=== PATIENT | female | born 1975 | race Caucasian/White ===

== ENCOUNTER 2022-01-21 07:59 | Emergency (ER) | payer BC, SELFPAY ==
[2022-01-21 08:00] VITALS: BP 147/94; PULSE 73; RESP 16; TEMP 36.2; O2SAT 100; BMI 28.1
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
[2022-01-21 08:50] VITALS: O2SAT 100
== END 2022-01-21 09:32 | disposition home or self-care (01) ==
PROVIDERS: Emergency Provider Emergency Medicine; PCP Family Medicine; Visit Provider Emergency Medicine
DX: S06.0X0A Concussion without loss of consciousness, initial encounter (principal); H93.19 Tinnitus, unspecified ear; S16.1XXA Strain of muscle, fascia and tendon at neck level, initial encounter; R11.2 Nausea with vomiting, unspecified; Y92.410 Unspecified street and highway as the place of occurrence of the external cause; V43.52XA Car driver injured in collision with other type car in traffic accident, initial encounter
CPT/HCPCS: 70450; 72125; 99282

== ENCOUNTER 2022-12-16 11:35 | Emergency (ER) | payer BC, SELFPAY ==
[2022-12-16 11:36] VITALS: BP 145/94; PULSE 89; RESP 18; TEMP 35.9; O2SAT 98; BMI 29.0
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
[2022-12-16] MEDS: Ketorolac 30 MG/ML Syringe IM (11:51)
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
== END 2022-12-16 12:51 | disposition home or self-care (01) ==
PROVIDERS: Emergency Provider Emergency Medicine; PCP Family Medicine; Visit Provider Emergency Medicine
DX: S20.20XA Contusion of thorax, unspecified, initial encounter (principal); S39.012A Strain of muscle, fascia and tendon of lower back, initial encounter; F17.210 Nicotine dependence, cigarettes, uncomplicated; V50 Occupant of pick-up truck or van injured in collision with pedestrian or animal
CPT/HCPCS: 71101; 72100; 73030; 96372; 99282

== ENCOUNTER 2023-02-05 09:49 | Emergency (ER) | payer BC, SELFPAY ==
[2023-02-05 09:50] VITALS: BP 121/78; PULSE 73; RESP 14; TEMP 36.3; O2SAT 100; BMI 28.2
[2023-02-05] MEDS: 0.9% Normal Saline (1000mL) 500 ML 1000 ML IV (10:34)
[2023-02-05] MEDS: Aspirin 81 MG TAB.CHEW 324 MG PO (10:34)
--- NOTE | 2023-02-05 10:37 | ED.VIS.CHEST ---
HPI History of Present Illness Chief Complaint: Chest Pain Informant: patient Narrative Narrative: Patient presents with chest pain. Patient states that about 2 nights ago she woke up and she had some tingling and numbness in her left hand like it went to sleep. She has been having this off and on since. She is wondering if she has bad circulation. She does do a lot of physical activity. No injury. No weakness at any time. She is right-hand dominant. But she also states that when she woke up she also had soreness in her left upper chest. It hurts a little bit to take a deep breath but she is not actually short of breath. She is not nauseated. She has not been diaphoretic. She has no recent travel surgery immobilization personal or family history of DVT or PEs. It sounds like her sister is on blood thinners but that is for cardiac problem. Her mother is on blood thinners due to a clot in an aneurysm Patient is a smoker and was counseled to quit. She has Chantix on order already. She does not have a history of high blood pressure or diabetes or cholesterol. She does have a sister who sounds like she had bypass surgery at the age of 50. But this patient has never had any cardiac disease. Patient states that her chest symptoms with this soreness have been constant for 2 days. It has not gone away at any time. PFSH PFSH Home Medications amoxicillin 500 mg capsule mg 02/05/23 [History Last Taken 02/05/23] Allergy/AdvReac Type Severity Reaction Status Date / Time No Known Allergies Allergy Verified 02/05/23 09:50 Family History Other Cancer Diabetes Hypertension Kidney disease Surgical History H/O total hysterectomy Social History Smoking Status: Current every day smoker tobacco type: cigarettes alcohol intake: never ROS ROS ED ROS Narrative A complete review of systems was performed and is negative except as documented in the history of present illness. Some specific details below. Constitutional: No recent fevers or chills. No malaise or myalgias. EYE: No discharge, visual complaints, or pain. ENT: No difficulty swallowing. No swelling. No pain. No reflux symptoms. No history of GERD. CV: See history of present illness. Respiratory: No coughing. Not short of breath but she does have left-sided chest pain with a deep breath. GI: No abdominal pain. No nausea vomiting diarrhea. No blood in stool. : No frequency dysuria or hematuria. Musculoskeletal: No recent trauma. No pains. No swelling. Skin: No rash. Nondiaphoretic. Neuro: No weakness but she has had tingling in her left hand. Endocrine: No polyuria or polydipsia. EXAM Physical Exam Narrative Exam Narrative: CONSTITUTIONAL: Patient is nontoxic in appearance. The patient looks comfortable. Work of breathing looks normal. HEENT: No notable trauma. Mucous membranes moist. No sinus tenderness. No indication of pain with swallowing. EYES: No conjunctival injection. No proptosis. No pallor. NECK:No JVD. No stridor. CARDIOVASCULAR: Regular rate. Regular rhythm. No notable murmur. No JVD. Distal pulses are normal peripherally. RESPIRATORY: No respiratory distress. Breathing is unlabored. No wheezes. No rhonchi. No rales. She does have some pain in the left chest with a deep breath but it does not cause cessation of inspiration. There is no chest wall significant tenderness. She does not have notable chest pain with motion of her left arm. GASTROINTESTINAL: Not distended. Bowel sounds are normal. No tenderness. No guarding. No rebound. No palpable mass. No bruit is heard. GENITOURINARY: No tenderness over the bladder. No CVA tenderness. MUSCULOSKELETAL: Atraumatic. No peripheral edema. No cord. No tenderness along the deep venous system. No asymmetry. No distended veins. Patient has excellent distal pulses. She has normal Gopal test and reverse Gopal test in her left hand. But she does have a strongly positive Tinel's test at the wrist. Phalen's is equivocal. She definitely has a component consistent with carpal tunnel. NEUROLOGICAL: Patient is alert and appropriate. No focal deficit noted. See above. SKIN: No noted rashes. No diaphoresis. PSYCHIATRIC: Patient is calm. Mood is appropriate. Const Vital Signs: 02/05/23 09:50 02/05/23 11:45 Temperature 97.3 F L Temperature Source Temporal Pulse Rate 73 65 Respiratory Rate 14 16 Blood Pressure 121/78 H 138/94 H Blood Pressure Mean 92 108 Pulse Ox 100 99 Oxygen Delivery Method Room Air MDM MDM MDM Narrative Medical decision making narrative: My independent interpretation of the patient's single view chest x-ray shows no sign of acute assess and final reading is similar. Patient CBC is overall normal. Patient's electrolytes show no marked abnormalities. Glucose is also normal. Troponin level is 4 despite 2 days of symptoms. Patient's D-dimer is normal at 0.33. I checked with the patient. I do think she has carpal tunnel. This certainly explains some of her symptoms in the left hand and physical findings. We will get a wrist splint for this. I recommend she still follow-up with her physician. They still may do outpatient stress testing based on her family history. Lab Data Attestation: I reviewed the patient's lab results. Labs: Laboratory Results - last 24 hr 02/05/23 10:40 WBC 10.3 RBC 5.17 Hgb 15.5 H Hct 45.6 MCV 88.2 MCH 30.0 MCHC 34.0 RDW Std Deviation 42.0 RDW Coeff of Jerrell 13.0 Plt Count 326 MPV 8.8 Immature Gran % (Auto) 0.300 Neut % (Auto) 62.9 Lymph % (Auto) 28.4 [place] % (Auto) 6.2 Eos % (Auto) 1.7 Baso % (Auto) 0.5 Absolute Neuts (auto) 6.5 Absolute Lymphs (auto) 2.92 Nucleated RBC % 0 D-Dimer Quant (PE/DVT) 0.33 Sodium 140 Potassium 3.9 Chloride 109 H Carbon Dioxide 25.0 Anion Gap 6 BUN 13 Creatinine 0.74 Estim Creat Clear Calc 88.85 Est GFR (MDRD) Af Amer 107 Est GFR (MDRD) Non-Af 88 BUN/Creatinine Ratio 17.5 Glucose 99 Calcium 9.0 Troponin I High Sens 4 Radiography Diagnostic Testing: Clinical Impression(s) from Imaging Studies Chest X-Ray 02/05/23 10:44 IMPRESSION: No radiographic evidence of acute cardiopulmonary disease. Electronically Signed: Pan Lai MD at 11:59 EST , EKG Initial EKG: Comments: My independent interpretation of the patient's EKG shows a normal sinus rhythm with a rate of 70. No ectopy. No acute ST elevation or depression. No preexcitation. OK interval, QRS duration and QTc are normal. Patient does have symptoms during the EKG. Discharge Plan Triage Chief Complaint: Chest Pain ED Provider: Rashel Cowan Dx/Rx/DC Orders Clinical Impression: Acute carpal tunnel syndrome of left wrist, Chest pain Instructions: ED Chest Pain, Uncertain Cause, ED Carpal Tunnel Syndrome Prescriptions: No Action amoxicillin 500 mg capsule Primary Care Provider: Corby Davila Referrals: Corby Davila MD [Primary Care Provider] - 3-5 Days Disposition Disposition: Home, Self Care
--- NOTE | 2023-02-05 10:44 | RAD_ITS ---
INDICATION: chest pain EXAMINATION/TECHNIQUE: X-RAY - XR Chest 1 View COMPARISON: Prior study dated: 12/16/2022 FINDINGS: LINES/DEVICES: None. LUNGS: No consolidation, edema or effusion. No pneumothorax. MEDIASTINUM AND CARDIOVASCULAR STRUCTURES: Cardiac silhouette not enlarged. Central airways and mediastinal contour are unremarkable. BONES AND SOFT TISSUES: Unremarkable. RAD/Chest 1 View (Portable) IMPRESSION: No radiographic evidence of acute cardiopulmonary disease. Electronically Signed: Pan Lai MD at 11:59 EST ,
[2023-02-05 10:50] LABS: Absolute Lymphocyte Count 2.92 X10^3/uL (0.83-4.51); Absolute Neutrophil Count 6.5 X10^3/uL (2.0-7.7); Basophil# 0.05 X10^3/uL; Basophil% 0.5 % (0-1); Eosinophil# 0.17 X10^3/uL; Eosinophils% 1.7 % (0-5); Hematocrit 45.6 % (37-47); Hemoglobin 15.5 g/dL (12.0-15.0); Lymphocyte # 2.92 X10^3/ul (0.83-4.51); Lymphocyte % 28.4 % (19-41); Mean Corpuscular Volume 88.2 fL (81-99); Mean Platelet Vol. 8.8 fl (6.2-12.0); Monocyte# 0.64 X10^3/uL; Monocyte% 6.2 % (0-10); NRBC Flagged by Analyzer 0 % (0-5); Neutrophil # 6.47 X10^3/uL (2.7-7.7); Neutrophil % 62.9 % (47-70); Platelet Count 326 K/mm3 (150-450); Red Blood Count 5.17 M/mm3 (4.2-5.4); White Blood Count 10.3 K/mm3 (4.4-11.0)
[2023-02-05 11:02] LABS: D-Dimer Quantitative (DVT/PE) 0.33 FEU/ug/m (0.27-0.49)
[2023-02-05 11:06] LABS: Anion Gap 6 (5-15); BUN 13 mg/dL (7-18); BUN/Creat Ratio 17.5 RATIO (10-20); Chloride 109 mmol/L (98-107); Creatinine, Serum 0.74 mg/dL (0.55-1.02); EST Glomerular Filtration Rate 88 mL/min (>60); Est Glom Filt Rate - Afr Amer 107 mL/min (>60); Estimated Creatinine Clearance 88.85 ml/min; Glucose 99 mg/dL (74-106); Potassium 3.9 mmol/L (3.5-5.1); Sodium Level 140 mmol/L (136-145); Troponin-I HS 4 pg/mL (3.0-54.0)
--- OUTSIDE RECORDS SUMMARY | 2023-02-05 11:13 | XMS RPT_ITS | CCD ---
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 Procedures Referred By Contac t Referred To Contact [facility] Diagnoses Encounter for screening mammogram for breast cancer Procedures DO SCREENING SCREENING MAMMOGRAPHY BI 2-VIEW BREAST INC CAD Zafar Davila MD [address] [place] [address] [facility] [address] [place] [address] Referral ID Status Reason Start Date Expiration Date V isits Requested Visits Authorized [id number] Closed Auto-Generate d Referral 02/12/2022 03/14/2023 1 1 [facility] for visit Narrative* Diagnostic Procedure Only (Routine) - Closed Specialty Diagnoses / Procedures Referred By Contac t Referred To Contact [facility] Diagnoses Encounter for screening mammogram for breast cancer Procedures DO SCREENING SCREENING MAMMOGRAPHY BI 2-VIEW BREAST INC CAD Zafar Davila MD [address] [place] [address] [facility] [address] [place] [address] Referral ID Status Reason Start Date Expiration Date V isits Requested Visits Authorized [id number] Closed Auto-Generate d Referral 02/12/2022 03/14/2023 1 1 [facility] Summary Purpose Family History No Family History Records FoundNo Family History Records FoundNo Family History Records Found Advance Directives Documents on File Type Date Recorded Patient A R Collections Rep Expl anation Advance Directive(s) Additional Source Comments INFORMATION SOURCE (unrecogn ized section and content) DATE CREATED AUTHOR AUTHOR'S ORGANIZ ATION 01/10/2020 [facility] DATE CREATED AUTHOR AUTHOR'S ORGANIZ ATION 10/11/2022 [place] Source Comments (unrecognize d section and content) In the event this informatio n is protected by the Federal Confidentiality of Alcohol and Drug Abuse Patient Records regulations: The Federal rules restrict any use of the information to criminally investigate or prosecute any alcohol or drug abuse patient.[facility] the event this information is protected by the Federal Confidentiality of Alcohol and Drug Abuse Patient Records regulations: The Federal rules restrict any use of the information to criminally investigate or prosecute any alcohol or drug abuse patient.[facility] the event this information is protected by the Federal Confidentiality of Alcohol and Drug Abuse Patient Records regulations: The Federal rules restrict any use of the information to criminally investigate or prosecute any alcohol or drug abuse patient.[facility] the event this information is protected by the Federal Confidentiality of Alcohol and Drug Abuse Patient Records regulations: The Federal rules restrict any use of the information to criminally investigate or prosecute any alcohol or drug abuse patient.[facility] Reason for Visit (unrecogniz ed section and content) Care Teams (unrecognized sec tion and content) Breastfeeding Educator Relationship Specialty Start Date End Date Zafar Davila MD [address] [place] [address] PCP - General Family Medicine 06/25/15 Breastfeeding Educator Relationship Specialty Start Date End Date Zafar Davila MD [address] [place] [address], [place] [address] PCP - General Family Medicine 06/25/15 Breastfeeding Educator Relationship Specialty Start Date End Date Zafar Davila MD [address] [place] [address] PCP - General Family Medicine 06/25/15 FOR RECORDS PERTAINING TO PATIENTS WHO ARE OR HAVE BEEN ENROLLED IN A CHEMICAL DEPENDENCY/SUBSTANCEABUSE PROGRAM, SOME INFORMATION MAY BE OMITTED. This clinical summary was aggregated from multiple sources. Caution should be exercised in using it in the provision of clinical care. This summary normalizes information from multiple sources, and as a consequence, information in this document may materially change the coding, format and clinical context of patient data. In addition, data may be omitted in some cases. CLINICAL DECISIONS SHOULD BE BASED ON THE PRIMARY CLINICAL RECORDS. [facility]. provides no warranty or guarantee of the accuracy or completeness of information in this document.
[2023-02-05 11:45] VITALS: BP 138/94; PULSE 65; RESP 16; O2SAT 99
== END 2023-02-05 13:36 | disposition home or self-care (01) ==
PROVIDERS: Emergency Provider Emergency Medicine; PCP Family Medicine; Visit Provider Emergency Medicine
DX: G56.02 Carpal tunnel syndrome, left upper limb (principal); F17.210 Nicotine dependence, cigarettes, uncomplicated; R07.9 Chest pain, unspecified
CPT/HCPCS: 71045; 80048; 84484; 85025; 85379; 93005; 99284; J7030

== ENCOUNTER 2024-10-17 23:00 | Emergency (ER) | payer BC, SELFPAY ==
[2024-10-17 23:02] VITALS: BP 167/99; PULSE 90; RESP 19; TEMP 36.8; O2SAT 100; BMI 25.2
--- NOTE | 2024-10-17 23:22 | EDS_ITS ---
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 She states she was helping to clean the basement floor, she was using Borax and vinegar and accidentally kicked over a container of bleach that mixed with it, and then she was trying to clean that up while she was exposed to fumes she ended up smelling. She states this could have been occurring between the hours of 4-6 p.m., she presents here around 11 PM having had chest burning, some shortness of breath mostly due to coughing, and soreness in her throat as well as some itching there. She states she has emphysema, she is not on home oxygen, she used her albuterol couple times it helped very transiently and partially. [facility] Medical History Low back pain Autoimmune disease Home Medications ?Medication ?Instructions ?Recorded ?Last Taken ?Type citalopram 10 mg tablet (Celexa) 10 mg PO QDAY #30 tab s 09/12/24 Unknown Rx varenicline tartrate 1 mg tablet 1 mg PO BID #56 tabs 09/12/24 Unknown Rx (Chantix Continuing Month Box) prednisone 20 mg tablet 40 mg (2 x 20 mg) PO DAILY 3 days 10/18/24 Unknown Rx #6 tabs Allergy/AdvReac Type Severity Reaction Status Date / Time No Known Allergies Allergy Verified 10/17/24 23:04 Family History (Updated 09/12/24 @ 09:[address] 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 do you feel safe at home: Yes ROS ROS ED Constitutional Constitutional ED: Denies chills or fever(s) Eyes Eyes: Denies change in vision or diplopia ENT ENT ED: Reports sore throat; Denies ear pain Cardiovascular Cardiovascular: Reports chest pain; Denies palpitations Respiratory/Chest Respiratory/Chest: Reports cough and dyspnea Gastrointestinal Gastrointestinal: Denies abdominal pain, diarrhea, nausea or vomiting Genitourinary Genitourinary ED: Denies dysuria or hematuria Musculoskeletal Musculoskeletal: Denies back pain or neck pain Integumentary Denies abscess or rash Neurologic Neurologic: Denies headache(s), paresthesias or weakness Psychiatric Psychiatric: Denies suicidal thoughts EXAM Physical Exam Const Vital Signs: 10/17/24 23:02 10/17/24 23:40 10/17/24 23:45 Temperature 98.3 F Temperature Source Oral Pulse Rate 90 80 Respiratory Rate 19 H 14 Respiratory Effort Short of Breath Respiratory Depth Normal Respiratory Pattern Tachypnea Blood Pressure 167/99 H Blood Pressure Mean 121 Pulse Ox 100 Oxygen Delivery Method Room Air Room Air Oxygen Flow Rate (L/min) Fraction of Inspired Oxygen (FIO2) 10/17/24 23:53 10/18/24 00:00 10/18/24 00:08 Temperature Temperature Source Pulse Rate 71 Respiratory Rate 16 Respiratory Effort Respiratory Depth Respiratory Pattern Blood Pressure 144/79 H Blood Pressure Mean 97 Pulse Ox 96 97 Oxygen Delivery Method Venturi Mask Oxygen Flow Rate (L/min) 8 Fraction of Inspired Oxygen (FIO2) 35 10/18/24 00:16 Temperature Temperature Source Pulse Rate Respiratory Rate Respiratory Effort Respiratory Depth Respiratory Pattern Blood Pressure Blood Pressure Mean Pulse Ox Oxygen Delivery Method Room Air Oxygen Flow Rate (L/min) Fraction of Inspired Oxygen (FIO2) Positive well nourished and well developed Constitutional Narrative: Well-appearing, no excessive secretions, conversive in full sentences. Occasional cough and bronchospasm when try to take deep breaths. General Appearance ED: well developed and NAD HEENT Reports moist mucous membranes HEENT Narrative: POP w/ mild erythema normocephalic and atraumatic Eyes PERRL and EOMs intact bilaterally Neck full ROM, no lymphadenopathy, supple and no meningeal signs Resp normal respiratory effort and clear to auscultation bilaterally Cardio regular rate, regular rhythm and no murmurs GI non-tender and non-distended Auscultation: normoactive bowel sounds Palpation: soft Back/Spine no CVA tenderness General Back: other FROM Extremity normal to inspection General Extremety ED: Negative for edema, pulses abnormal or tenderness General Extremity: Negative for edema or pulses abnormal Neuro oriented x3, CN's II-XII intact bilaterally and no sensory deficits noted Sensorium / Orientation: awake and alert Motor Exam: strength 5/5 throughout Skin no rashes or lesions noted and no wounds MDM MDM MDM Narrative Medical decision making narrative: Patient appears well and nontoxic with normal vital signs. We gave her some fluids to drink, albuterol nebulizer, and a nebulized lidocaine treatment to see if would help with the burning. She states these did help for 5 or 10 minutes but then she started having discomfort again, we let her sit with a 35% Ventimask for a while to try to help flood the inhaled chlorine gas out, and eventually did a 1 view chest x-ray which my interpretation is unremarkable. She is feeling better and ambulatory and conversive in full sentences, and feels well enough to go home. I did discuss with poison control, they agreed with my management and did not have any other recommendations. And given the patient a [id number] prescription for a 3-day course of prednisone just in case she ends up having more of a COPD exacerbation from this which at this point I do not think she is necessarily having. Management Discussion w/another healthcare provider: Police Commanding Officer ( Poison control/toxicology) Discharge Plan Triage Chief Complaint: Cough ED Provider: Suman Aguilar Dx/Rx/DC Orders Clinical Impression: Acute pneumonitis due to chemical fumes Instructions: ED Chemical Inhalation Prescriptions: New prednisone 20 mg tablet 40 mg PO DAILY 3 Days Qty: 6 0RF No Action citalopram [Celexa] 10 mg tablet 10 mg PO QDAY Qty: 30 1RF varenicline tartrate [Chantix Continuing Month Box] 1 mg tablet 1 mg PO BID Qty: 56 2RF Primary Care Provider: Nichelle Hogan Referrals: Nichelle Hogan MD [Primary Care Provider] - 3-5 Days if not improving Print Language: Kiswahili Disposition Disposition: Home, Self Care
--- OUTSIDE RECORDS SUMMARY | 2024-10-17 23:25 | XMS RPT_ITS | CCD ---
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 0.9841 * Slice Thickness (mm): 1.25 * CT Dose-Length Product: 100 mGy*cm * CT Dose Index: 2.88mGy * CT Dose Reduction Method: Automated exposure control(AEC) and iterative recon COMPARISON: CT chest dated 09/23/2023 RESULT: Are nodules present? Yes, 1-5 nodules If No, go to IMPRESSION. If yes, proceed with characterization of the FIVE largest nodules. Nodule 1: This Solid nodule is located in the Left Upper Lobe on slice number 116 with an average diameter of 2.8 mm (3.2 mm x 2.3 mm). Nodule 2: This Solid nodule is located in the Left Lower Lobe on slice number 159 with an average diameter of 2.2 mm (2.7 mm x 1.7 mm). Nodule 3: This Solid nodule is located in the Left Upper Lobe on slice number 64 with an average diameter of 2.2 mm (2.7 mm x 1.7 mm). Other lung nodule comments: None Other findings: The central airways are patent without evidence of endobronchial lesion. Upper lobe predominant paraseptal and centrilobular emphysema with diffuse bronchial wall thickening is seen. There is no acute focal lung consolidation. There is no pleural effusion or pneumothorax. Borderline enlarged mediastinal lymph nodes are likely reactive. For reference, a subcarinal lymph node (image 126, series 2) measures 10 mm in short axis, a left para-aortic lymph node (image 101, series 2) measures 10 mm in short axis and a right paratracheal lymph node (image 106, series 2) measures 10 mm in short axis. No enlarged supraclavicular, axillary or hilar lymph nodes are seen. The aorta and main pulmonary artery are normal in course and caliber. The heart size is normal. There is no pericardial effusion. Calcified nodule is seen in the right thyroid lobe. The esophagus is nondilated. The soft tissues of the chest wall are unremarkable. The visible portion of the upper abdomen is unremarkable. A sclerotic focus in the T8 vertebral body is stable since 03/22/2010 and likely represents a bone island. No destructive bone lesion is seen. Emphysema: Mild (5-25%), Centrilobular and paraseptal, Upper lobe Coronary Artery Calcifications: Circumflex None; Left Anterior Descending None; Right Coronary None Localizer images: No additional findings. IMPRESSION: LungRADS category: 2 LungRADS modifier: None LungRADS 0 reason: n/a Recommendations: Continue annual screening with LDCT in 12 months. Other actionable findings: ========= Reference: [employer]. Lung CT Screening Reporting and Data System (Lung-RADS). Available at: http://www.acr.org/Angus lity-Safety/Resources/ LungRADS Transcribed Using Voice Recognition Transcribe Date/Time: Oct 03 2024 4:15P Dictated by: MARIJA DENTON MD This examination was interpreted and the report reviewed and electronically signed by: MARIJA DENTON MD on Oct 03 2024 4:36PM EST [id number] Normal [facility] Internal Medicine Office Vis iton 09-06-2024 Internal Medicine Office Visit [facility] [address] [place] [address] OFFICE VISIT Date of Service: 09/12/24 MR#: [id number] Acct: [id number] Name: KIZZY UREÑA Rep #: [id number] : 1975 Provider: Dr. Nichelle santos MD Age/Sex: 48/F Location: [facility] Status: Signed Intake Vital Signs 02/05/23 09:50 07/24/24 10:31 09/12/24 09:05 Height 4 ft 10 in 4 ft 10 in 4 ft 10 in Weight: 124 lb BMI 25.9 BP 140/80 H Blood Pressure Location Lt brachial Position Sitting Respiration 16 Pulse 66 Pulse Source Monitor Temp 97.7 F L Temp Source Temporal Pulse Oximetry (%) 97 Oxygen Delivery Method room air Intake Visit Reasons: STORE HAND. EST CARE - PPW SENT Chief Complaint: STORE HAND ESTABLISH CARE Is patient in pain?: Yes (LEFT HIP >1 YEAR) Pain scale (1-10): 7 Allergies No Known Allergies Allergy (Verified 09/12/24 09:02) Medications ???Medication ???Instructions ???Recorded ???Confirmed ???Type citalopram 10 mg tablet (Celexa) 10 mg PO QDAY #30 tabs 09/12/24 Rx varenicline tartrate 1 mg tablet 1 mg PO BID #56 tabs 09/12/2406/03 Rx (Chantix Continuing Month Box) Have you fallen in the past year?: No FOR[facility]LY [facility], [facility] Medical History (Updated 09/12/24 @ 09:[address] Nichelle Hogan MD) Low back pain Autoimmune disease Surgical History (Updated 09/12/24 @ 09:[address] Nichelle Hogan MD) Previous section H/O total hysterectomy Family History (Updated 09/12/24 @ 09:[address] Nichelle Hogan MD) Grandmother Cancer lung Lupus Mother Cancer lung Lupus Sister Lupus Aunt Lupus Other Diabetes Heart disease Hypertension Kidney disease Thyroid disorder Social History (Updated 09/12/24 @ 09:[address] 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 1. Little interest or pleasure in doing things: not at all 2. Feeling down, depressed, or hopeless: not at all 3. Trouble falling or staying asleep, or sleeping too much: not at all 4. Feeling tired or having little energy: not at all 5. Poor appetite or overeating: not at all 6. Feeling bad about yourself - or that you are a failure or have let yourself and your family down: not at all 7. Trouble concentrating on things, such as reading the newspaper or watching television: nearly every day 8. Moving or speaking so slowly that other people could have noticed? - Or the opposite - being so fidgety or restless that you have been moving around a lot more than usual: nearly every day 9. Thoughts that you would be better off or of hurting yourself in some way: not at all Total score: 6 If you checked off any problems, how difficult have these problems made it for you to do your work, take care of things at home, or get along with other people?: not difficult at all Source: Developed by Drs. Jim Whitfield, Katty Lopez, Dre Mercer and colleagues, with an educational emery from [employer]. ALBERTO-7 BMS ALBERTO-7 Feeling nervous, anxious, or on edge: 0 = Not at all Not being able to stop or control worryin = Not at all Worrying too much about different things: 0 = Not at all Trouble relaxin = Not at all Being so restless that it is hard to sit still: 0 = Not at all Becoming easily annoyed or irritable: 3 = Nearly every day Feeling afraid as if something awful might happen: 0 = Not at all Total ALBERTO-7 score (0-4 normal; 5-9 mild; 10-14 moderate; 15-21 severe): 3 Source: Developed by Drs. Jim Whitfield, Katty Lopez, Dre Mercer and colleagues, with an educational emery from [employer]. HPI HPI Chief Complaint: STORE HAND ESTABLISH CARE Details: KIZZY UREÑA, is a 48 F who presents to the office today to establish care. She was seeing Dr. Felder and last saw their office a few months ago. She is due for some routine blood work and screening. She does want her second shingles vaccine. She does smoke. She is currently using chantix and would like a refill for it. She reports with it, she has cut back from 1ppd to 1pack per week. She does need refills. She reports she is eating healthy and staying active. She enjoys bike riding. The patient reports she has a strong family history of autoimmune disorders in the family. She reports she was told she also had an autoimmune disease, but has tried and failed multiple medications. She reports she does get symptoms of raynaud's stating her fingers will turn white w (more content not included)... Normal [facility] Urgent Care Visit Reporton 0 07-24-2024 Urgent Care Visit Report [facility] [address], [address] [place] [address] OFFICE VISIT Date of Service: 07/24/24 MR#: [id number] Acct: [id number] Name: KIZZY UREÑA Rep #: [id number] : 1975 Provider: COURTNEY terry Age/Sex: 48/F Location: [facility] Status: Signed Intake Vital Signs 02/05/23 09:50 07/24/24 10:31 Height 4 ft 10 in 4 ft 10 in BP 118/76 Blood Pressure Location Lt brachial Position Sitting Respiration 17 Pulse 70 Pulse Source NIBP Temp 98.1 F Temp Source Oral Pulse Oximetry (%) 96 Oxygen Delivery Method room air Intake Visit Reasons: INGROWN TOE NAIL R BIG TOE/ MOLE ON BACK Chief Complaint: right great toe infection Platform Man Required: No Is patient in pain?: Yes Allergies No Known Allergies Allergy (Verified 07/24/24 10:43) Medications ???Medication ???Instructions ???Recorded ???Confirmed ???Type amoxicillin 875 mg-potassium 1 tab PO BID 7 days #14 tabs 07/2407/24/24 Rx clavulanate 125 mg tablet lidocaine 5 % topical ointment 1 applic topical QDAY PRN pain #30 07/24/24 07/24/24 Rx grams Is last menstrual period known: No Post menopausal: Yes Patient : No Have you fallen in the past year?: No Nurse's Note: right great toe infection x 1 week, much worse last night after pt dug at it. hx of same. also c/o right upper back skin tag PFSH Surgical History H/O total hysterectomy Family History Other Cancer Diabetes Hypertension Kidney disease Social History Smoking Status: Current every day smoker tobacco type: cigarettes alcohol intake: never HPI HPI Chief Complaint: right great toe infection Details: KIZZY UREÑA is a 48 F who presents to the office today for concerns regarding right great toe infection for this and ongoing for 1 week. She feels this to have worsened after she dug at it. She also stressed concerns regarding a right upper back skin tag. ROS Const Constitutional: No body ache, chills, fatigue, fever(s) or headache(s) ENT ENT: No headache(s) Skin Skin: Positive for redness Neuro Neurology: No headache(s) Endo Endocrine: No fatigue Exam Const General: cooperative, healthy appearing, comfortable and no acute distress Orientation: alert and awake Skin General: other Other: right great toe redness, clear drainage, and tender to touch. Pulses 2+. Warm extremity to touch. Coding Level of Care Code Off vis,est,level 3 Diagnoses Toe pain, right M79.674 Assessment and Plan Assessment and Plan (1) Toe pain, right: Status: Acute Plan: Will add oral antibiotic along with topical antibiotic. She expresses concerns regarding pain control. Will send prescription for lidocaine to help. She was encouraged to utilize hydrocortisone cream along with Tylenol and ibuprofren. She was encouraged to follow with mineral economist for toe related issues along with potential flat foot or overpronation related issues that may affect her knee or hip. Encouraged to get plenty of rest, drink lots of clear liquids, and use Tylenol or Ibuprofen (unless contraindicated) for fever and comfort. Patient also educated on other symptomatic management techniques. To be seen in 7-10 days if no improvement; sooner if worsening of symptoms.??? Patient advised of potential red flags and when appropriate to report to the ED.??? Patient verbalized understanding and agreement with all the above. Medications: New amoxicillin-pot clavulanate 875-125 mg 1 TAB PO BID 7 days 14 tabs 0RF lidocaine 5% 1 applic topical QDAY PRN 30 grams 0RF pain Clinical Quality Measures Falls Risk Screening/Assistive Devices Have you fallen in the past year?: No 07/24/24 4329 Date [facility] STORE HAND STORE HAND-C Cosigner Signature: Date (if applicable) CC: Dr. Nichelle Hogan MD; Dr. Abel Hill DO Normal [facility] UA DIP, URINE (POC)on 2023 BILIRUBIN UA (POCT) Negative Negative [facility] CLARITY UA (POCT) Clear [facility] COLOR UA (POCT) Yellow [facility] GLUCOSE UA (POCT) Negative Negative mg/dL [facility] Hemoglobin Ql (U) Moderate Abnormal Negative [facility] Interpretation and review of laboratory results Abnormal [facility] KETONE UA (POCT) Negative Negative mg/dL [facility] LEUKOCYTES UA (POCT) Negative Negative [facility] NITRITE UA (POCT) Negative Negative [facility] PH UA (POCT) 6.0 4.5 - 8.0 [facility] Protein Ql (U) Negative Negative mg/dL [facility] SPECIFIC GRAVITY UA (POCT) >=1.030 1.005 - 1.030 [facility] UROBILINOGEN UA (POCT) 0.2 Normal E.U./dL [facility] Location:[facility], [address] [place] [address], [place], [place], [id number] [place] [address] POINT OF CARE [facility] DO SCREENINGon 09-29-2022 [facility] No Panel Informationon 09-27 POC SARS CoV-2 Antigen Negative [facility] Work Phone: CORONAVIRUS PCR [CCL]on 12-11 REF LAB REPORT Negative Normal [facility] Comment on above: Performed By: #### [id number] #### [facility],[address] [place] [address] SEND TO IC? NO Normal [facility] Comment on above: Performed By: #### 2 [id number] #### [facility],[address] [place] [address] COVID 19 Result STORE HAND Negative Normal [facility] Comment on above: Result Comment: Nega tive for COVID19 (SARS CoV2) by PCR. This test was developed and its performance characteristics determined by [facility]'s [facility]. This test has been authorized by FDA under an Emergency Use Authorization (EUA). This test has been validated in accordance with the FDA's Guidance Document Policy for Diagnostics Testing in Laboratories Certified to Perform High Complexity Testing under CLIA prior to Emergency use Authorization for Coronavirus Disease 2019 during the Public Health Emergency issued on April 09, 2019. [id number] [place] [address] Valdez Renae III, M.D. [id number] Performed By: #### 2 [id number] #### [facility],[address] [place] [id number] COVID 19 Source STORE HAND STORE HAND Normal [facility] Comment on above: Performed By: #### 2 [id number] #### [facility],[address] [place] [address] EMERGENCY REPORTon 0 EMERGENCY REPORT [facility] EMERGENCY ROOM REPORT NAME ACCOUNT SEX AGE ADMIT DISCHARGE PT MED. RECORD# NUMBER DATE DATE TYPE KIZZY UREÑA [id number] F 44 10/18/19 10/18/19 3 M [id number] ROOM: ER DATE OF : 1975 DICTATING PHYSICIAN: Donta Lawrence CHIEF COMPLAINT: Eye pain. HISTORY OF PRESENT ILLNESS: The patient stats that she leaned over and the sharp point of a yucca plant leaf struck her eye. This happened within the last hour. She is complaining of marked discomfort, irritation and pain to the right eye. She states that it is very light sensitive. Additionally, she states that her nose just will not stop running. No other injuries or complaints. PAST MEDICAL HISTORY: Negative for significant medical problems. PHYSICAL EXAMINATION: GENERAL: This is a 44-year-old female who is very pleasant, but she is markedly uncomfortable. She is holding her right eye. SKIN: [place], warm and dry. VITAL SIGNS: As noted. HEENT: Nose mouth and throat are generally unremarkable. Left eye appears normal with reactive pupil. It is difficult to examine the right eye initially because she states that it is so hard to keep it open and it is difficult to open because of pain. EMERGENCY DEPARTMENT COURSE AND TREATMENT: I instilled a couple of drops of tetracaine and repeated this 30-60 seconds later and she had nearly complete relief of her pain. Gross visualization of that eye revealed diffusely reddened conjunctiva and what appeared to be a corneal disruption somewhat laterally. No evidence of foreign body. Upper and lower lids were everted, and no foreign body was seen. The funduscopic exam was unremarkable. The eye anterior chamber appeared normal. Fluorescein drops were instilled and this revealed a moderate corneal abrasion/laceration vertically oriented across the cornea, lateral to the pupil. No other evidence of abnormality. It was irrigated and explored again. No other abnormalities seen. DIAGNOSIS: Corneal abrasion. I did place a cyclopentolate drop and erythromycin ointment. PLAN/DISPOSITION: She was dispensed Cyclogyl drops to use one drop b.i.d. for the next 2 days, erythromycin ointment t.i.d., tetracaine drops to use one drop q2-4h up to 24 hours. She is to follow up with [facility] in 24-48 hours if symptoms persist. Return if symptoms worsen. Page 1 of 2 KIZZY UREÑA Emergency Room Report KIZZY UREÑA : 1975 Dictated By: Donta Lawrence MD 10/21/19 07:28 JOB #: [id number] Transcribed By: renee 10/22/19 10:47 Electronically signed by: TALIB Lawrence M.D. 10/28/19 17:30 Page 2 of 2 KIZZY UREÑA Emergency Room Report Normal [facility] Vital Signs Date Time Vital Sign Value Performing Clinician Facility 09-30-2024 09:06-0400 Body height 144.8 cm Chastity Maya PA-C Work Phone: [facility] 09-30-2024 09:06-0400 Body mass index (BMI) [Ratio] 25.53 kg/m2 Chastity Maya PA-C Work Phone: [facility] 09-30-2024 09:06-0400 Body temperature 97.2 [degF] Chastity Maya PA-C Work Phone: [facility] 09-30-2024 09:06-0400 Body weight 53.52 kg Chastity Maya PA-C Work Phone: [facility] 09-30-2024 09:06-0400 Diastolic blood pressure 70 mm[Hg] Chastity Shahi PA-C Work Phone: [facility] 09-30-2024 09:06-0400 Heart rate 71 /min Chastity Shahi PA-C Work Phone: [facility] 09-30-2024 09:06-0400 Respiratory rate 10 /min Chastity Shahi PA-C Work Phone: [facility] 09-30-2024 09:06-0400 SaO2% (BldA) [Mass fraction] 97 % Chastity Shahi PA-C Work Phone: [facility] 09-30-2024 09:06-0400 Systolic blood pressure 126 mm[Hg] Chastity Shahi PA-C Work Phone: [facility] 09-12-2024 09:05-0400 Body height 147.[address] Corby Felder MD Work Phone: [facility] 09-12-2024 09:05-0400 Body mass index (BMI) [Ratio] 25.9 kg/m2 Dr. Corby Felder MD Work Phone: [facility] 09-12-2024 09:05-0400 Body temperature 97.7 [degF] Dr. Corby Felder MD Work Phone: [facility] 09-12-2024 09:05-0400 Body weight 56.[address] Corby Felder MD Work Phone: [facility] 09-12-2024 09:05-0400 Diastolic blood pressure 80 mm[Hg] Dr. Corby Felder MD Work Phone: [facility] 09-12-2024 09:05-0400 Heart rate 66 /min Dr. Corby Felder MD Work Phone: [facility] 09-12-2024 09:05-0400 Respiratory rate 16 /min Dr. Corby Felder MD Work Phone: [facility] 09-12-2024 09:05-0400 SaO2% (BldA) [Mass fraction] 97 % Dr. Corby Felder MD Work Phone: 3(134)757-590843 [place] [address] 09-12-2024 09:05-0400 Systolic blood pressure 140 mm[Hg] Dr. Corby Felder MD Work Phone: 8(062)570-820171 [place] [address] 07-24-2024 10:31-0400 Body height 147.[address] Corby Felder MD Work Phone: 5(902)890-018071 [place] [address] 07-24-2024 10:31-0400 Body temperature 98.1 [degF] Dr. Corby Fleder MD Work Phone: 7(391)750-815271 [place] [address] 07-24-2024 10:31-0400 Diastolic blood pressure 76 mm[Hg] Dr. Corby Felder MD Work Phone: 4(162)846-070571 [place] [address] 07-24-2024 10:31-0400 Heart rate 70 /min Dr. Corby Felder MD Work Phone: 8(954)720-974671 [place] [address] 07-24-2024 10:31-0400 Respiratory rate 17 /min Dr. Corby Felder MD Work Phone: 1(568)896-210271 [place] [address] 07-24-2024 10:31-0400 SaO2% (BldA) [Mass fraction] 96 % Dr. Corby Felder MD Work Phone: [facility] 07-24-2024 10:31-0400 Systolic blood pressure 118 mm[Hg] Dr. Corby Felder MD Work Phone: [facility] 09-25-2023 08:32-0400 Body height 144.8 cm Chastity Maya PA-C Work Phone: [facility] 09-25-2023 08:32-0400 Body mass index (BMI) [Ratio] 27.27 kg/m2 Chastity Maya PA-C Work Phone: [facility] 09-25-2023 08:32-0400 Body temperature 97.3 [degF] Chastity Shahi PA-C Work Phone: [facility] 09-25-2023 08:32-0400 Body weight 57.15 kg Chastity Shahi PA-C Work Phone: [facility] 09-25-2023 08:32-0400 Diastolic blood pressure 83 mm[Hg] Chastity Cruzlli PA-C Work Phone: [facility] 09-25-2023 08:32-0400 Heart rate 70 /min Chastity Shahi PA-C Work Phone: [facility] 09-25-2023 08:32-0400 Respiratory rate 12 /min Chastity Cruzlli PA-C Work Phone: [facility] 09-25-2023 08:32-0400 SaO2% (BldA) [Mass fraction] 100 % Chastity Shahi PA-C Work Phone: [facility] 09-25-2023 08:32-0400 Systolic blood pressure 139 mm[Hg] Chastity Shahi PA-C Work Phone: [facility] 09-10-2023 08:31-0400 Body mass index (BMI) [Ratio] 27.7 kg/m2 Kimmy Suppan METHODS AND PROCEDURES ANALYST.NET FRONT END DEVELOPER Work Phone: [facility] 09-10-2023 08:31-0400 Body weight 58.06 kg Kimmy Suppan METHODS AND PROCEDURES ANALYST.NET FRONT END DEVELOPER Work Phone: [facility] 09-10-2023 08:31-0400 Diastolic blood pressure 80 mm[Hg] Kimmy Suppan METHODS AND PROCEDURES ANALYST.NET FRONT END DEVELOPER Work Phone: [facility] 09-10-2023 08:31-0400 Heart rate 77 /min Kimmy Suppan METHODS AND PROCEDURES ANALYST.NET FRONT END DEVELOPER Work Phone: [facility] 09-10-2023 08:31-0400 Respiratory rate 16 /min Kimmy Suppan METHODS AND PROCEDURES ANALYST.NET FRONT END DEVELOPER Work Phone: [facility] 09-10-2023 08:31-0400 SaO2% (BldA) [Mass fraction] 99 % Kimmy Suppan METHODS AND PROCEDURES ANALYST.NET FRONT END DEVELOPER Work Phone: [facility] 09-10-2023 08:31-0400 Systolic blood pressure 132 mm[Hg] Kimmy Suppan METHODS AND PROCEDURES ANALYST.NET FRONT END DEVELOPER Work Phone: [facility] 09-09-2023 17:13-0400 Body mass index (BMI) [Ratio] 28.19 kg/m2 Tony Moomaw METHODS AND PROCEDURES ANALYST.NET FRONT END DEVELOPER Work Phone: [facility] 09-09-2023 17:13-0400 Body temperature 98.29 [degF] Tony Moomaw METHODS AND PROCEDURES ANALYST.NET FRONT END DEVELOPER Work Phone: [facility] 09-09-2023 17:13-0400 Body weight 59.1 kg Tony Moomaw METHODS AND PROCEDURES ANALYST.NET FRONT END DEVELOPER Work Phone: [facility] 09-09-2023 17:13-0400 Diastolic blood pressure 84 mm[Hg] Tony Moomaw METHODS AND PROCEDURES ANALYST.NET FRONT END DEVELOPER Work Phone: [facility] 09-09-2023 17:13-0400 Heart rate 80 /min Tony Moomaw METHODS AND PROCEDURES ANALYST.NET FRONT END DEVELOPER Work Phone: [facility] 09-09-2023 17:13-0400 Respiratory rate 16 /min Tony Moomaw METHODS AND PROCEDURES ANALYST.NET FRONT END DEVELOPER Work Phone: [facility] 09-09-2023 17:13-0400 SaO2% (BldA) [Mass fraction] 99 % Tony Moomaw METHODS AND PROCEDURES ANALYST.NET FRONT END DEVELOPER Work Phone: [facility] 09-09-2023 17:13-0400 Systolic blood pressure 144 mm[Hg] Tony Moomaw METHODS AND PROCEDURES ANALYST.NET FRONT END DEVELOPER Work Phone: [facility] 12-16-2022 11:36-0500 Body height 144.78 cm [facility] 12-16-2022 11:36-0500 Body mass index (BMI) [Ratio] 29 kg/m2 [facility] 12-16-2022 11:36-0500 Body temperature 96.7 [degF] [facility] 12-16-2022 11:36-0500 Body weight 60.78 kg [facility] 12-16-2022 11:36-0500 Diastolic blood pressure 94 mm[Hg] [facility] 12-16-2022 11:36-0500 Heart rate 89 /min [facility] 12-16-2022 11:36-0500 Respiratory rate 18 /min [facility] 12-16-2022 11:36-0500 SaO2% (BldA) [Mass fraction] 98 % [facility] 12-16-2022 11:36-0500 Systolic blood pressure 145 mm[Hg] [facility] 01-21-2022 08:50-0500 SaO2% (BldA) [Mass fraction] 100 % No Primary Care Physician [facility] Work Phone: 01-21-2022 08:00-0500 Body height 144.78 cm No Primary Care Physician [facility] Work Phone: 01-21-2022 08:00-0500 Body mass index (BMI) [Ratio] 28.1 kg/m2 No Primary Care Physician [facility] Work Phone: 01-21-2022 08:00-0500 Body temperature 97.1 [degF] No Primary Care Physician [facility] Work Phone: 01-21-2022 08:00-0500 Body weight 58.96 kg No Primary Care Physician [facility] Work Phone: 01-21-2022 08:00-0500 Diastolic blood pressure 94 mm[Hg] No Primary Care Physician [facility] Work Phone: 01-21-2022 08:00-0500 Heart rate 73 /min No Primary Care Physician [facility] Work Phone: 01-21-2022 08:00-0500 Respiratory rate 16 /min No Primary Care Physician [facility] Work Phone: 01-21-2022 08:00-0500 Systolic blood pressure 147 mm[Hg] No Primary Care Physician [facility] Work Phone: 09-27-2021 14:27-0400 Body mass index (BMI) [Ratio] 26.4 kg/m2 No Primary Care Physician [facility] Work Phone: 09-27-2021 14:27-0400 Body temperature 98.6 [degF] No Primary Care Physician [facility] Work Phone: 09-27-2021 14:27-0400 Body weight 57.32 kg No Primary Care Physician [facility] Work Phone: 09-27-2021 14:27-0400 Diastolic blood pressure 76 mm[Hg] No Primary Care Physician [facility] Work Phone: 09-27-2021 14:27-0400 Heart rate 85 /min No Primary Care Physician [facility] Work Phone: 09-27-2021 14:27-0400 Respiratory rate 12 /min No Primary Care Physician [facility] Work Phone: 09-27-2021 14:27-0400 SaO2% (BldA) [Mass fraction] 96 % No Primary Care Physician [facility] Work Phone: 09-27-2021 14:27-0400 Systolic blood pressure 136 mm[Hg] No Primary Care Physician [facility] Work Phone: 04-30-2021 15:50-0400 Body temperature 98.42 [degF] JAME CARMONA MD [facility] 04-30-2021 15:50-0400 Diastolic blood pressure 88 mm[Hg] JAME CARMONA MD [facility] 04-30-2021 15:50-0400 Heart rate 90 /min JAME CARMONA MD [facility] 04-30-2021 15:50-0400 Respiratory rate 18 /min JAME CARMONA MD [facility] 04-30-2021 15:50-0400 Systolic blood pressure 118 mm[Hg] JAME CARMONA MD [facility] Encounters Encounter Date Encounter Type Care Provider Facility Start: 10-11-2024 End: 10-11-2024 Telephone encounter Gosia Gaelas APRN.CNP Work Phone: Pulmonary Medicine Start: 10-04-2024 End: 10-04-2024 Follow-up encounter Chastity Maya PA-C Work Phone: Pulmonary Medicine Start: 09-30-2024 End: 09-30-2024 Office outpatient visit 40 minutes Chastity Maya PA-C Work Phone: Pulmonary Medicine Comment on above: Lung nodule seen on imaging study (Primary Dx); Encounter for screening for malignant neoplasm of lung; Cigarette smoker; Pulmonary emphysema, unspecified emphysema type (HCC); Bronchiectasis without complication (HCC); Family history of malignant neoplasm of trachea, bronchus and lung Start: 09-30-2024 End: 09-30-2024 ambulatory CHASTITY MAYA Facility:[facility] Start: 09-30-2024 End: 09-30-2024 Subsequent hospital visit by physician Radio [facility] [place] Work Phone: Radiology Comment on above: Tobacco use [Z72.0] Start: 09-12-2024 End: 09-12-[address] Nichelle Hogan MD -[facility] Work Phone: Start: 09-12-2024 End: 09-12-[address] Corby Felder MD Work Phone: -[facility] Start: 08-19-2024 End: 08-19-2024 ambulatory Kimmy Fox APRN.NET FRONT END DEVELOPER Work Phone: [facility] [place] Comment on above: Poison lillie Start: 07-24-2024 End: 07-24-2024 Patient encounter procedure Enrrique Billings [facility] Work Phone: Start: 07-24-2024 End: 07-24-[address] Corby Felder MD Work Phone: [facility] Work Phone: Start: 03-01-2024 End: 04-01-2024 ambulatory Corby Felder MD Work Phone: [facility] Start: 11-11-2023 ambulatory HIMA ONEILL Facility:[facility] Start: 11-08-2023 End: 11-08-2023 Chart abstracting Hima Oneill PAJose Work Phone: Pulmonary Medicine Comment on above: pulm abstract for Start: 09-28-2023 End: 09-28-2023 Chart abstracting Rossy Castillo LPN [facility] Start: 09-25-2023 End: 09-25-2023 Office outpatient new 20 minutes Chastity Maya PA-C Work Phone: Pulmonary Medicine Comment on above: Encounter for screen ing for malignant neoplasm of lung (Primary Dx); Tobacco use; Lung nodule seen on imaging study; Shortness of breath Start: 09-24-2023 Telephone encounter Kimmy Fox APRN.NET FRONT END DEVELOPER Work Phone: [facility] [place] Comment on above: Results Start: 09-23-2023 End: 09-23-2023 Subsequent hospital visit by physician [facility] (I-Stat) Work Phone: Cat Scan Comment on above: Microscopic hematuri a [R31.29] Start: 09-17-2023 Admission to [facility] Jaquan Ho MD Work Phone: Ambulatory Surgery Comment on above: miralax bowel prep Start: 09-17-2023 E-mail encounter fro m caregiver Jaquan Ho MD Work Phone: Ambulatory Surgery Start: 09-11-2023 Telephone encounter Coco Morris APRN.NET FRONT END DEVELOPER Work Phone: [facility] Comment on above: Results Start: 09-10-2023 Telephone encounter Ousmane Mai Yunior martinez DO Work Phone: [facility] Start: 09-10-2023 End: 09-10-2023 Office outpatient visit 25 minutes Kimmy Fox METHODS AND PROCEDURES ANALYST.NET FRONT END DEVELOPER Work Phone: [facility] Comment on above: Tobacco abuse (Prima ry Dx); Microscopic hematuria; Wellness examination; Interstitial cystitis; Raynaud's disease without gangrene; Screening for colon cancer Start: 09-10-2023 End: 09-10-2023 Patient encounter status Kimmy Fox METHODS AND PROCEDURES ANALYST.NET FRONT END DEVELOPER Work Phone: [facility] Start: 09-09-2023 End: 09-09-2023 Patient encounter procedure Tony Yuan CHERELLE.NET FRONT END DEVELOPER Work Phone: [facility] Comment on above: Urinary frequency (P rimary Dx) Start: 12-16-2022 End: 12-16-2022 [facility]: Start: 09-29-2022 Documentation procedure Mammog sia Coordinator [facility] Start: 09-29-2022 Letter encounter Mammography Coordinator [facility] Department Start: 09-29-2022 End: 09-29-2022 Subsequent hospital visit by physician Screen Mammo [facility] Mammogram Comment on above: Encounter for screen ing mammogram for breast cancer [Z12.31] Start: 09-18-2022 ambulatory Corby Felder MD Work Phone: [facility] Comment on above: Testing Start: 01-21-2022 End: 01-21-2022 Emergency department patient visit No [facility] Start: 09-27-2021 End: 09-27-2021 Patient encounter procedure [facility] Start: 04-30-2021 End: 04-30-2021 Emergency department patient visit JAME CARMONA MD [facility] Start: 02-05-2021 Nurse Triage Lynn Castaneda MD Work Phone: Cardiology Comment on above: Orders Start: 01-04-2020 End: 01-04-2020 Patient encounter procedure CORBY HARDIN [facility] Start: 10-18-2019 End: 10-18-2019 Emergency department patient visit DONTA LAWRENCE [facility] Start: 11-04-2017 Patient encounter Conrado Trimblenan Facility:[facility] Start: 11-03-2017 Patient encounter Conrado Trimblenan Facility:[facility] Procedures Date Procedure Procedure Detail Performing Clinician Start: 09-10-2023 Lipid 1996 panel - S bigg or Plasma Coco Morris METHODS AND PROCEDURES ANALYST.NET FRONT END DEVELOPER Work Phone: Start: 09-09-2023 Urnls dip stick/tabl et rgnt auto w/o microscopy Marilynn Grimes METHODS AND PROCEDURES ANALYST.NET FRONT END DEVELOPER Work Phone: Start: 09-29-2022 End: 09-29-2022 Mammography Bulk Order Provider Start: 01-21-2022 CT cervical spine wi thout contrast No Primary Care Physician Start: 01-21-2022 CT of head without contrast No Primary Care Physician Start: 01-04-2021 Mammography Lynn washburn MD Work Phone: Start: 01-08-2018 Lipid 1996 panel - S bigg or Plasma Screen Wstr section JAME BECK MD Vaginal hysterectomy JAME SCHULTZ MD Plan of Treatment Date Care Activity Detail Author Start: 09-26-2033 Urine microalbumin profile DTaP,Tdap,Td Vaccine (2 - Td or Tdap) [facility] Start: 09-09-2028 Lipid panel Lipid Screening [facility] Start: 09-09-2026 Diabetes Screening Diabetes Screenin g [facility] Start: 10-02-2025 End: 10-02-2025 Patient encounter procedure Radiology Comment on above: CT LUNG SCREEN WO IV CON follow up Start: 09-30-2025 Screening for malign ant neoplasm of lung Lung Cancer Screening [facility] Start: 10-10-2024 Influenza vaccination Influenza Vacc ine (#1) [facility] Start: 09-30-2024 End: 09-30-2024 Patient encounter procedure Radiology Comment on above: Establish care Start: 09-22-2024 Screening for malign ant neoplasm of lung Lung Cancer Screening [facility] Start: 03-14-2024 End: 03-14-2024 Patient encounter procedure 03/14/2024 9:00 AM EST Office Visit [facility] [place] [address] [place], [place] [phone] Kimmy Fox APRN.NET FRONT END DEVELOPER [address] [place], [place] [id number] 6 Month follow up [facility] [place] Comment on above: 6 Month follow up Start: 11-22-2023 Shingrix Vaccine (2 of 2) Lopez grix Vaccine (2 of 2) [facility] Start: 11-11-2023 End: 11-11-2023 Patient encounter procedure 11/11/2023 9:00 AM EDT Office Visit Pulmonary Medicine [address] [facility] [address] [place] [address] Hima Oneill PA-C [address] [place] [address] Establish care Pulmonary Medicine Comment on above: Establish care Start: 11-11-2023 End: 11-11-2023 ambulatory Pulmonary Comment on above: Establish care Start: 11-10-2023 DIABETES SCREEN DIABETES SCREEN [facility] Start: 11-10-2023 Diabetes Screening Diabetes Screenin g [facility] Start: 10-11-2023 Covid-19 Vaccine ( season) Covid-19 Vaccine ( season) [facility] Start: 10-11-2023 Influenza vaccination Influenza Vacc ine (#1) [facility] Start: 09-30-2023 Mammography [facility] Start: 09-30-2023 Screening for malign ant neoplasm of breast Mammogram Screening [facility] Start: 09-25-2023 End: 09-25-2023 Patient encounter procedure 09/25/2023 8:30 AM EDT Office Visit Pulmonary Medicine [address] [facility] [address] [place] [address] Chastity Maya PA-C [address] [place] [address] lung cancer screening Pulmonary Medicine Comment on above: lung cancer screenin g Start: 09-24-2023 End: 09-24-2023 Patient encounter procedure 09/24/2023 12:15 PM EDT Appointment Ambulatory Surgery [address] [place], [place] [phone] Jaquan Ho MD [address] [place], [place] [phone] Screening for colon cancer [Z12.11] Ambulatory Surgery Comment on above: Screening for colon cancer [Z12.11] Start: 09-23-2023 End: 09-23-2023 Patient encounter procedure Cat Scan Comment on above: Tobacco abuse [Z72.0 ] Microscopic hematuri a [R31.29] Start: 09-17-2023 End: 10-09-2024 CT Chest WO contrast CT CHEST WO IVCON Radiology Routine Tobacco abuse Expected: 09/17/2023, Expires: 10/09/2024 [facility] Comment on above: Expected: 09/17/2023 , Expires: 10/09/2024 Start: 09-17-2023 End: 10-09-2024 CT Kidney WO and W contrast IV CT UROGRAM WO/W IVCON Radiology Routine Microscopic hematuria Expected: 09/17/2023, Expires: 10/09/2024 [facility] Work Phone: Comment on above: Expected: 09/17/2023 , Expires: 10/09/2024 Start: 09-16-2023 Screening for malign ant neoplasm of lung Lung Cancer Screening [facility] Start: 09-16-2023 Shingrix Vaccine (1 of 2) Lopez grix Vaccine (1 of 2) [facility] Start: 09-10-2023 End: 12-10-2023 CBC W Auto Differential panel - Blood [facility] Comment on above: Expected: 09/10/2023 , Expires: 12/10/2023 Start: 09-10-2023 End: 12-10-2023 Comprehensive metabolic 2000 panel - Serum or Plasma [facility] Comment on above: Expected: 09/10/2023 , Expires: 12/10/2023 Start: 09-10-2023 End: 12-10-2023 Hemoglobin A1c in Blood [facility] Comment on above: Expected: 09/10/2023 , Expires: 12/10/2023 Start: 09-10-2023 End: 12-10-2023 LIPID PANEL, NONFASTING [facility] Comment on above: Expected: 09/10/2023 , Expires: 12/10/2023 Start: 09-10-2023 End: 12-10-2023 Magnesium [Mass/volume] in Serum or Plasma [facility] Comment on above: Expected: 09/10/2023 , Expires: 12/10/2023 Start: 09-10-2023 End: 12-10-2023 Thyrotropin [Units/volume] in Serum or Plasma [facility] Comment on above: Expected: 09/10/2023 , Expires: 12/10/2023 Start: 09-10-2023 End: 09-10-2023 Patient encounter procedure 09/10/2023 8:40 AM EDT Office Visit Family [facility] [address] [place], [place] [phone] Kimmy Fox, METHODS AND PROCEDURES ANALYST.NET FRONT END DEVELOPER [address] [place] [address] Follow up Family [facility] Comment on above: Follow up Start: 01-08-2023 Lipid 1996 panel - S bigg or Plasma Lipid Screening [facility] Start: 01-08-2023 Lipid panel Lipid Screening [facility] Start: 01-08-2023 LIPID SCREEN LIPID SCREEN [facility] Start: 12-16-2022 [facility] Start: 12-16-2022 Plain X-ray of shoulder Shoulder min 2 Views [facility] Start: 12-16-2022 X-ray of chest posteroanterior view Ribs Uni Min 3V w/PA Chest [facility] Start: 12-16-2022 X-ray of lumbar spin e, two or three views Lumbar Spine 2 or 3 Views [facility] Start: 12-16-2022 XR Lumbar spine 2 or 3 Views [facility] Start: 12-16-2022 XR Ribs GE 3 Views a nd Chest PA [facility] Start: 12-16-2022 XR Shoulder GE 2 Views [facility] Start: 10-10-2022 Covid-19 Vaccine ( season) Covid-19 Vaccine () [facility] Start: 10-10-2022 Influenza vaccination [facility] Start: 01-04-2022 Mammography MAMMOGRAM [facility] Start: 06-10-2021 COVID-19 VACCINE (4 - Moderna series) COVID-19 VACCINE (4 - Moderna series) [facility] Start: 12-25-2020 COVID-19 VACCINE (3 - Booster for Moderna series) COVID-19 VACCINE (3 - Booster for Moderna series) [facility] Start: 2018 COLOGUARD (FIT-DNA) COLOGUARD (FIT-D NA) [facility] Start: 2018 Colonoscopy COLONOSCOPY [facility] Start: 2018 COLORECTAL CANCER SCREENING COLORECTAL CANCER SCREENING [facility] Start: [address] COLONOGRAPHY [facility] Start: 2018 FECAL OCCULT BLOOD FECAL OCCULT BLOO D [facility] Start: 2018 Screening for malign ant neoplasm of colon [facility] Start: 2018 SIGMOIDOSCOPY SIGMOIDOSCOPY [facility] Start: 07-10-2016 PAP TESTING PAP TESTING [facility] Start: 07-10-2016 Screening for malign ant neoplasm of cervix Cervical Cancer Screening [facility] Start: 11-30-2013 HPV TESTING HPV TESTING [facility] Start: 01-31-2003 Urine microalbumin profile DTaP,Tdap,Td Vaccine (1 - Tdap) [facility] Start: 1992 ONE PNEUMOVAX PRIOR TO AGE 65 ONE PNEUMOVAX PRIOR TO AGE 65 [facility] Start: 1992 Urine microalbumin profile DTAP,TDAP,TD (1 - Tdap) [facility] Start: 09-16-1979 PNEUMOCOCCAL (1 - PCV) PNEUMOCOCCAL (1 - PCV) [facility] Start: 09-16-1979 Pneumococcal vaccination [facility] Bacteria identified in Urine by Culture URINE CULTURE Microbiology Routine Urinary frequency Ordered: 09/09/2023 [facility] Work Phone: Comment on above: Ordered: 09/09/2023 CBC W Auto Different ial panel - Blood [facility] Comprehensive metabo lic 2000 panel - Serum or Plasma [facility] End: 10-24-2024 CT Chest for screening WO contrast CT LUNG SCREEN WO IVCON Radiology Routine Tobacco use Encounter for screening for malignant neoplasm of lung Lung nodule seen on imaging study 1 Occurrences starting 09/25/2023 until 10/24/2024 [facility] Comment on above: 1 Occurrences starti ng 09/25/2023 until 10/24/2024 CT Chest for screeni ng WO contrast CT LUNG SCREEN WO IVCON Radiology Routine Tobacco use Encounter for screening for malignant neoplasm of lung Lung nodule seen on imaging study 09/30/2024 9:06 AM EDT [facility] Work Phone: End: 10-30-2025 CT Chest for screening WO contrast CT LUNG SCREEN WO IVCON Radiology Routine Lung nodule seen on imaging study Encounter for screening for malignant neoplasm of lung Cigarette smoker 1 Occurrences starting 09/30/2024 until 10/30/2025 [facility] Comment on above: 1 Occurrences starti ng 09/30/2024 until 10/30/2025 CT Chest WO contrast CT CHEST WO IVCON Radiology Routine Tobacco abuse 09/23/2023 10:47 AM EDT [facility] CT Kidney WO and W contrast IV CT UROGRAM WO/W IVCON Radiology Routine Microscopic hematuria 09/23/2023 10:46 AM EDT [facility] Work Phone: End: 03-31-2025 DBT Breast - bilateral screening DO SCREENING W TARA Radiology Routine Encounter for screening mammogram for breast cancer 1 Occurrences starting 03/01/2024 until 03/31/2025 [facility] Work Phone: Comment on above: 1 Occurrences starti ng 03/01/2024 until 03/31/2025 Lipid 1996 panel - S bigg or Plasma [facility] End: 10-24-2024 LUNG DIFFUSION CAPACITY (DLCO) LUNG DIFFUSION CAPACITY (DLCO) PFT Routine Shortness of breath 1 Occurrences starting 09/25/2023 until 10/24/2024 [facility] Comment on above: 1 Occurrences starti ng 09/25/2023 until 10/24/2024 End: 10-31-2025 LUNG DIFFUSION CAPACITY (DLCO) LUNG DIFFUSION CAPACITY (DLCO) PFT Routine Lung nodule seen on imaging study Cigarette smoker 1 Occurrences starting 09/30/2024 until 10/31/2025 [facility] Comment on above: 1 Occurrences starti ng 09/30/2024 until 10/31/2025 MG Breast - bilatera l Screening [facility] Patient Education [facility] Work Phone: Patient referral [facility] Work Phone: End: 09-09-2024 Screening colonoscopy COLONOSCOPY SCREENING Endoscopy Routine Screening for colon cancer 1 Occurrences starting 09/10/2023 until 09/09/2024 [facility] Comment on above: 1 Occurrences starti ng 09/10/2023 until 09/09/2024 End: 10-24-2024 SPIROMETRY WITH DILATOR IF OBSTRUCTED SPIROMETRY WITH DILATOR IF OBSTRUCTED PFT Routine Shortness of breath 1 Occurrences starting 09/25/2023 until 10/24/2024 [facility] Work Phone: Comment on above: 1 Occurrences starti ng 09/25/2023 until 10/24/2024 End: 10-31-2025 SPIROMETRY WITH DILATOR IF OBSTRUCTED SPIROMETRY WITH DILATOR IF OBSTRUCTED PFT Routine Lung nodule seen on imaging study Cigarette smoker 1 Occurrences starting 09/30/2024 until 10/31/2025 [facility] Work Phone: Comment on above: 1 Occurrences starti ng 09/30/2024 until 10/31/2025 Thyroid stimulating hormone measurement [facility] Tobacco use cessatio n education [facility] Immunizations Immunization Date Immunization Notes Care Provider Fa [facility] 09-27-2023 influenza, seasonal, injectable, preservative free Rossy Runkle EARLY CHILDHOOD EDUCATION SPECIALIST [facility] 09-27-2023 pneumococcal conjuga te (PCV20) vaccine, 20 valent (PREVNAR 20) Rossy Runkle [facility] 09-27-2023 tetanus toxoid, reduced diphtheria toxoid, and acellular pertussis vaccine, adsorbed Rossy Runkle [facility] 09-27-2023 zoster vaccine recombinant Rossy Runkle [facility] 09-27-2023 influenza virus vaccine, unspecified formulation Kimmychad Fox APRN.CNP Work Phone: [facility] 04-15-2021 Covid (Moderna) Dr. Corby Felder MD Work Phone: [facility] 10-31-2020 influenza, injectabl e, quadrivalent, contains preservative Lynn Castaneda MD Work Phone: [facility] 10-31-2020 influenza, injectabl e, quadrivalent, preservative free Dr. Corby Felder MD Work Phone: [facility] 10-31-2020 influenza virus vaccine, unspecified formulation Screen Wstr [facility] 07-25-2020 Covid (Moderna) Dr. Corby Felder MD Work Phone: [facility] 06-27-2020 Covid (Moderna) Dr. Corby Felder MD Work Phone: [facility] 04-22-2019 influenza, injectabl e, quadrivalent, preservative free Dr. Corby Felder MD Work Phone: [facility] 01-07-2018 influenza, injectabl e, quadrivalent, contains preservative Lynn Castaneda MD Work Phone: [facility] 01-07-2018 influenza, injectabl e, quadrivalent, preservative free Dr. Corby Felder MD Work Phone: [facility] 09-23-2014 influenza, seasonal, injectable, preservative free Dr. Corby Felder MD Work Phone: [facility] 11-13-2003 hepatitis B vaccine, adult dosage Rossy Runkle [facility] 01-30-2003 hepatitis B vaccine, adult dosage Rossy Runkle [facility] 01-30-2003 TD(adult) unspecifie d formulation Rossy Runkle [facility] 10-14-2002 hepatitis B vaccine, adult dosage Rossy Runkle [facility] Payers Date Payer Category Payer Self-pay [id number] 2022 [employer] Blue Shield [id number] 2022 Unknown [id number] 2020 Unknown [employer] BL[employer]E SS PPO [id number] 2020-Present [phone] [id number] [place] [address] PPO [id number] 2020 Unknown [id number] 1975 Unknown [id number] 1975 Unknown [id number] Private Health Insurance [facility] [id number] Unknown [id number] Unknown ANTHEM [id number] Unknown [id number] Unknown [id number] Unknown [id number] Social History Date Type Detail Facility Start: 11-23-1988 End: 09-30-2024 Smokes tobacco daily (finding) [facility] Sex Assigned At [facility] Start: 11-23-1988 History of tobacco use Cigarette Smo ker [facility] Work Phone: Start: 01-07-2018 End: 09-30-2024 Cigarettes smoked current (pack per day) - Reported 0.33 [facility] Start: 01-07-2018 End: 09-30-2024 Tobacco use and exposure Smokeless tobacco non-user [facility] Work Phone: Start: 01-17-2021 End: 09-30-2024 Alcohol intake Current non-drinker of alcohol (finding) [facility] Start: 01-07-2020 End: 03-12-2021 History SDOH Alcohol Frequency 1 [facility] Start: 01-07-2020 History SDOH Alcohol Std Drinks 98 [facility] Start: 07-23-2006 History SDOH Alcohol Comment none since 2005 [facility] Start: 09-06-2019 End: 01-07-2020 History SDOH Social Connections Phone 5 [facility] Start: 01-07-2020 End: 03-12-2021 History SDOH Social Connections Get Together 2 [facility] Start: 09-06-2019 End: 01-07-2020 History SDOH Social Connections Living 3 [facility] Start: 09-06-2019 Education 14 [facility] Start: 1975 Sex Assigned At Not on file [facility] Start: 12-18-2020 End: 01-17-2021 Exposure to SARS-CoV-2 (event) Not sure [facility] Start: 01-21-2022 End: 12-16-2022 Tobacco smoking status NHIS Unknown if ever smoked [facility] Start: 1975 Sex Assigned At Female [facility] Start: 02-26-2022 End: 09-30-2024 Social connection and isolation panel [facility] Start: 01-11-2012 Frequency of Communi cation with Friends and Family Not on file [facility] Do you belong to any clubs or organizations such as congregation groups, unions, fraternal or athletic groups, or school groups? Yes [facility] Are you now , , , , never or living with a partner? [facility] How often to you hav e a drink containing alcohol? Monthly or less [facility] How many standard dr inks containing alcohol do you have on a typical day? 1 or 2 [facility] How often do you hav e 6 or more drinks on 1 occasion? Never [facility] Do you feel stress - tense, restless, nervous, or anxious, or unable to sleep at night because your mind is troubled all the time - these days [OSQ] Not at all [facility] (I/We) worried [place] (my/our) food would run out before (I/we) got money to buy more. Never true [facility] In the past 12 month s, was there a time when you were not able to pay the mortgage or rent on time? No [facility] Functional Status Date Assessment Result Facility 03-07-2014 Are you deaf, or do you have serious difficulty hearing No 03/07/2014 1:46 PM Adry Smith Ma [facility] 03-07-2014 Are you blind, or do you have serious difficulty seeing, even when wearing glasses No 03/07/2014 1:46 PM Adry Smith Ma [facility] 03-07-2014 Do you have serious difficulty walking or climbing stairs No 03/07/2014 1:46 PM Adry Smith Ma [facility] 03-07-2014 Do you have difficul ty dressing or bathing No 03/07/2014 1:46 PM Adry Smith Ma [facility] 03-07-2014 Because of a physica l, mental, or emotional condition, do you have difficulty doing errands alone such as visiting a physician's office or shopping No 03/07/2014 1:46 PM Adry Smith Ma [facility] Mental Status Date Assessment Result Facility 03-07-2014 Because of a physica l, mental, or emotional condition, do you have serious difficulty concentrating, remembering, or making decisions No 03/07/2014 1:46 PM Adry Smith Ma [facility] Clinical Notes 07-23-2006 to 10-11-2024 Telephone Encounter - Chastity Maya PA-C - 10/11/2024 11:30 AM EDTTelephone Encounter - Chastity Maya PA-C - 10/11/2024 11:30 AM EDTMChastity hampton PA-C - 09/30/2024 9:37 AM EDT Note Date & Type Note [facility] 10-11-2024 Telephone encounter Note According to the CDC website, do not use more than 20 lozenges/day. Chastity Maya PA-C [facility] 10-11-2024 Miscellaneous Notes According to the [facility] website, do not use more than 20 lozenges/day. Chastity Maya PA-C Ewa from [facility] called requesting the right amount per day for Insurance purposes for Nicotine Polacrilex 4 mg lozenge. Thank you. documented in this encounter [facility] 10-11-2024 Telephone encounter Note Ewa from [facility] called requesting the right amount per day for Insurance purposes for Nicotine Polacrilex 4 mg lozenge. Thank you. [facility] 09-30-2024 Note HNO ID: [id number] Author: CHASTITY MAYA PA-C Service: ? Author Type: Physician Monitoring Engineer Type: Progress Notes Filed: 10/04/2024 11:40 Note Text: [facility] Lung Cancer Screening Annual Visit Recording using [email or web address] software for draft documentation of the visit was discussed with the patient/authorized branch sales and service representative; all questions welcomed and answered. Patient/authorized branch sales and service representative agreed to proceed Chief Complaint: Established patient in lung cancer screening program here for annual follow-up. Current or Ex-smoker? [Current Exam Type: annual LDCT Number of Pack Years: 27 Current smoker (=0) The patient's smoking history is similar to prior year shared decision visit. Impression / Recommendations 1. Lung nodule seen on imaging study (R91.1) 2. Pulmonary emphysema, unspecified emphysema type (HCC) (J43.9) 3. Bronchiectasis without complication (HCC) (J47.9) Low-dose CT scan today revealed a new 4 mm nodule not present on last year?s scan, likely a mucus plug but will await final radiology report. Imaging demonstrates emphysema and mild diffuse bronchiectasis consistent with smoking-related lung damage. No evidence of malignancy at this time. - Await final radiology report; will notify patient via Paga if earlier follow-up is needed. - Educated patient on the impact of smoking on lung health and the importance of cessation. - Reordered pulmonary function tests to establish baseline lung function; patient to schedule at checkout. - Follow-up in 1 year. 4. Cigarette smoker (F17.210) Currently smokes approximately 10 cigarettes per day; previous attempts to quit with Chantix and Celexa were unsuccessful due to side effects. - Discussed smoking cessation options, including nicotine lozenges and gum; prescription for 4 mg nicotine lozenges sent to pharmacy. - Educated patient on proper use of nicotine gum and lozenges, including dosing and side-effect management. - Provided information on behavioral strategies and smoking cessation program. 5. Encounter for screening for malignant neoplasm of lung (Z12.2) 6. Family history of malignant neoplasm of trachea, bronchus and lung (Z80.1) Patient has a significant family history of lung cancer (mother, maternal grandmother, and great-grandmother). - Continue annual low-dose CT screening. I spent a total of 40 minutes on the date of the service which included preparing to see the patient, [id number] patient care, completing clinical documentation, performing a medically appropriate examination, counseling and educating the patient/family/caregiver, ordering medications, tests, or procedures, independently interpreting results (not separately reported), communicating results to the patient/family/caregiver, and care coordination (not separately reported). Chastity Maya PA-C September 30, 2024 History of Present Illness: Kizzy Ureña is a 49-year-old female, with a history of smoking, presenting for follow-up on lung cancer screening. Kizzy is undergoing her first low-dose CT scan as part of the lung cancer screening program, following a CT scan of the chest last year. She reports a reduction in smoking to approximately 10 cigarettes per day, down from 15. She has attempted smoking cessation twice using Chantix, with the first attempt resulting in temporary cessation. During the second attempt, she was prescribed Celexa due to mood changes, described as mean, attributed to Chantix. However, she discontinued Celexa after 8 days due to adverse effects, including dizziness, dysphagia, and sadness. She is not currently interested in further smoking cessation attempts. Kizzy reports clear sputum production, occasionally with black streaks, but denies dyspnea or wheezing. She has been using an incentive spirometer to aid in expectoration but notes it is no longer effective. She denies recent upper respiratory infections, cough, or colds in the past 4 weeks. She reports feeling great, with a healthy diet, regular exercise, and an active job. She has lost weight, currently weighing 118 lbs, down from 147 lbs. She denies any history of asthma. ECOG PERFORMANCE STATUS: 0- Fully active, able to carry on all pre-disease performance w/o restriction. Problem List, History, Medications and allergies have been reviewed from the [facility] electronic medical record and any appropriate up-dates have been made. PHYSICAL EXAMINATION: BP 126/70 Pulse 71 Temp 36.2 ?C (97.2 ?F) Resp 10 Ht 144.8 cm (4' 9) Wt 53.5 kg (118 lb) LMP 08/11/2009 SpO2 97% BMI 25.53 kg/m? General appearance: Well appearing, alert, in no acute distress, well-hydrated, well nourished. Skin: Skin color normal, no suspicious rashes or lesions Head: Normocephalic, atraumatic Eyes (more content not included)... [facility] 09-30-2024 History of Presen t illness Narrative [facility] Lung Cancer Screening Annual Visit Recording using [email or web address] software for draft documentation of the visit was discussed with the patient/authorized branch sales and service representative; all questions welcomed and answered. Patient/authorized branch sales and service representative agreed to proceed Chief Complaint: Established patient in lung cancer screening program here for annual follow-up. Current or Ex-smoker? [Current Exam Type: annual LDCT Number of Pack Years: 27 Current smoker (=0) The patient's smoking history is similar to prior year shared decision visit. Impression / Recommendations 1. Lung nodule seen on imaging study (R91.1) 2. Pulmonary emphysema, unspecified emphysema type (HCC) (J43.9) 3. Bronchiectasis without complication (HCC) (J47.9) Low-dose CT scan today revealed a new 4 mm nodule not present on last year s scan, likely a mucus plug but will await final radiology report. Imaging demonstrates emphysema and mild diffuse bronchiectasis consistent with smoking-related lung damage. No evidence of malignancy at this time. - Await final radiology report; will notify patient via [email or web address] if earlier follow-up is needed. - Educated patient on the impact of smoking on lung health and the importance of cessation. - Reordered pulmonary function tests to establish baseline lung function; patient to schedule at checkout. - Follow-up in 1 year. 4. Cigarette smoker (F17.210) Currently smokes approximately 10 cigarettes per day; previous attempts to quit with Chantix and Celexa were unsuccessful due to side effects. - Discussed smoking cessation options, including nicotine lozenges and gum; prescription for 4 mg nicotine lozenges sent to pharmacy. - Educated patient on proper use of nicotine gum and lozenges, including dosing and side-effect management. - Provided information on behavioral strategies and smoking cessation program. 5. Encounter for screening for malignant neoplasm of lung (Z12.2) 6. Family history of malignant neoplasm of trachea, bronchus and lung (Z80.1) Patient has a significant family history of lung cancer (mother, maternal grandmother, and great-grandmother). - Continue annual low-dose CT screening. I spent a total of 40 minutes on the date of the service which included preparing to see the patient, [id number] patient care, completing clinical documentation, performing a medically appropriate examination, counseling and educating the patient/family/caregiver, ordering medications, tests, or procedures, independently interpreting results (not separately reported), communicating results to the patient/family/caregiver, and care coordination (not separately reported). Chastity Maya PA-C September 30, 2024 -- History of Present Illness: Kizzy Ureña is a 49-year-old female, with a history of smoking, presenting for follow-up on lung cancer screening. Kizzy is undergoing her first low-dose CT scan as part of the lung cancer screening program, following a CT scan of the chest last year. She reports a reduction in smoking to approximately 10 cigarettes per day, down from 15. She has attempted smoking cessation twice using Chantix, with the first attempt resulting in temporary cessation. During the second attempt, she was prescribed Celexa due to mood changes, described as mean, attributed to Chantix. However, she discontinued Celexa after 8 days due to adverse effects, including dizziness, dysphagia, and sadness. She is not currently interested in further smoking cessation attempts. Kizzy reports clear sputum production, occasionally with black streaks, but denies dyspnea or wheezing. She has been using an incentive spirometer to aid in expectoration but notes it is no longer effective. She denies recent upper respiratory infections, cough, or colds in the past 4 weeks. She reports feeling great, with a healthy diet, regular exercise, and an active job. She has lost weight, currently weighing 118 lbs, down from 147 lbs. She denies any history of asthma. ECOG PERFORMANCE STATUS: 0- Fully active, able to carry on all pre-disease performance w/o restriction. Problem List, History, Medications and allergies have been reviewed from the [facility] electronic medical record and any appropriate up-dates have been made. PHYSICAL EXAMINATION: BP 126/70 Pulse 71 Temp 36.2 C (97.2 F) Resp 10 Ht 144.8 cm (4' 9) Wt 53.5 kg (118 lb) LMP 08/11/2009 SpO2 97% BMI 25.53 kg/m General appearance: Well appearing, alert, in no acute distress, well-hydrated, well nourished. Skin: Skin color normal, no suspicious rashes or lesions Head: Normocephalic, atraumatic Eyes: Anicteric sclera. Extraocular movements are intact. Lungs: Lungs clear to auscultation. No wheezing, rhonchi, rales. Heart: RRR without murmur, gallop, or rubs. No ectopy Extremities: Edema: None Neuro: Gait normal. No focal deficits Data Review I have personally visualized, reviewed and analyzed the findings on pulmonary function testing and radiographs. Imaging: (Today) Low-dose CT chest: - Approximately 4 mm density in the right lung, likely a mucus plug, not present on previous imaging. - Emphysema with mild diffuse bronchiectasis. - Ground-glass attenuation and air trapping consistent with reactive airway disease or smoking-related interstitial lung disease. - No suspicious findings concerning for malignancy. CT chest: - Emphysema with mild diffuse bronchiectasis. - Ground-glass attenuation and air trapping within both lungs. Pulmonary Function Testing: No textual results found for the specified procedure(s). documented in this encounter [facility] 09-30-2024 Instructions Chastity Maya PA-C - 09/30/2024 9:34 AM EDT We discussed your lung health and smoking history: - Your low-dose CT scan from today was reviewed and compared to last year s scan. There is no evidence of lung cancer at this time. However, there is a small spot (approximately 4 mm) that may represent a mucus plug. Radiology may recommend a follow-up scan in 6 months to monitor this area. I will notify you via MyChart if this is needed. - Your CT scan shows evidence of smoking-related lung damage, including emphysema, mild diffuse bronchiectasis (widening of the airways), and ground-glass attenuation with air trapping. These findings are consistent with smoking-related interstitial lung disease. - You are not currently experiencing symptoms such as shortness of breath or wheezing, which is reassuring. However, the mucus production you described is likely related to the bronchiectasis and smoking. - Quitting smoking is the most important step you can take to prevent further lung damage and improve your overall lung health. You mentioned you are not ready to quit at this time, but we discussed several options for smoking cessation, including nicotine lozenges, gum, and patches. - A prescription for 4 mg nicotine lozenges has been sent to your preferred pharmacy ([facility] in [place]). These lozenges can help reduce cravings. Please keep the lozenge in the side of your mouth to avoid stomach upset. - If you decide to try nicotine gum, remember to chew it briefly to activate it and then park it in your cheek to allow the nicotine to absorb. - If you are interested in additional support, you can contact 1-245-SXID-NOW for free resources. - You mentioned using a spirometry device to help clear mucus. While we do not have one available in the office today, you may consider purchasing one for continued use. We discussed pulmonary function testing (PFTs): - Pulmonary function tests (PFTs) were ordered to evaluate your lung function and establish a baseline. These tests are important for monitoring your lung health over time. Please schedule this test at checkout today. We discussed follow-up care: - I recommend a follow-up visit in 1 year for your next low-dose CT scan. If the final radiology report from today s scan suggests earlier follow-up, I will notify you via Stilnesthart and arrange the appointment for you. - Please prioritize scheduling and completing your PFTs as soon as possible. If you have any questions or concerns, please reach out to our office. documented in this encounter [facility] 09-30-2024 History of Presen t illness Narrative Radiology Service Progress Note PATIENT NAME: Kizzy Ureña DATE OF SERVICE: September 30, 2024 TIME: 8:59 AM PATIENT IDENTITY VERIFICATION COMPLETED USING TWO (2) IDENTIFIERS: Name and Date of confirmed by patient verbally and Name and Date of confirmed by identification band. FALL SCREENING: Has the patient had 2 falls in the last year or 1 fall with injury or currently using an Ambulatory Assistive Device (Walker, Cane, Wheelchair, Crutches, etc.)? No PATIENT GENDER DATA: Assigned female at . status: : No status: NO. PATIENT RELEVANT IMPLANT DATA REVIEWED: Not Applicable PATIENT PRESENTS WITH AN IMPLANTABLE OR ATTACHED EGG CANDLER: No RADIOLOGY DEPARTMENT: CT; Exam(s) Completed: Chest PERIPHERAL IV DATA: Not applicable SIGNED BY: Allie Walker September 30, 2024 8:59 AM documented in this encounter [facility] 09-30-2024 Note HNO ID: [id number] Author: JOANNE PAUL Tech Service: ? Author Type: Technologist Type: Progress Notes Filed: 09/30/2024 08:59 Note Text: Radiology Service Progress Note PATIENT NAME: Kizzy Ureña DATE OF SERVICE: September 30, 2024 TIME: 8:59 AM PATIENT IDENTITY VERIFICATION COMPLETED USING TWO (2) IDENTIFIERS: Name and Date of confirmed by patient verbally and Name and Date of confirmed by identification band. FALL SCREENING: Has the patient had 2 falls in the last year or 1 fall with injury or currently using an Ambulatory Assistive Device (Walker, Cane, Wheelchair, Crutches, etc.)? No PATIENT GENDER DATA: Assigned female at . status: : No status: NO. PATIENT RELEVANT IMPLANT DATA REVIEWED: Not Applicable PATIENT PRESENTS WITH AN IMPLANTABLE OR ATTACHED EGG CANDLER: No RADIOLOGY DEPARTMENT: CT; Exam(s) Completed: Chest PERIPHERAL IV DATA: Not applicable SIGNED BY: Allie Walker September 30, 2024 8:59 AM [facility] 09-12-2024 Progress note [facility] 09-12-2024 Progress note Note Date/Time September 12, 2024 12:45pm [facility] [address] [place] [address] [place] [address] OFFICE VISIT Date of Service: 09/12/24 MR#: [id number] Acct: [id number] Name: KIZZY UREÑA Rep #: [id number] : 1975 Provider: Dr. Jaya Hogan MD Age/Sex: 48/F Location: [facility] Status: Signed Intake Vital Signs 02/05/23 09:50 07/24/24 10:31 09/12/24 09:05 Height 4 ft 10 in 4 ft 10 in 4 ft 10 in Weight: 124 lb BMI 25.9 BP 140/80 H Blood Pressure Location Lt brachial Position Sitting Respiration 16 Pulse 66 Pulse Source Monitor Temp 97.7 F L Temp Source Temporal Pulse Oximetry (%) 97 Oxygen Delivery Method room air Intake Visit Reasons: STORE HAND. EST CARE - PPW SENT Chief Complaint: STORE HAND ESTABLISH CARE Is patient in pain?: Yes (LEFT HIP >1 YEAR) Pain scale (1-10): 7 Allergies No Known Allergies Allergy (Verified 09/12/24 09:02) Medications ?Medication ?Instructions ?Recorded ?Confirmed ?Type citalopram 10 mg tablet (Celexa) 10 mg PO QDAY #30 tab s 09/12/24 09/12/24 Rx varenicline tartrate 1 mg tablet 1 mg PO BID #56 tabs 09/12/24 09/12/24 Rx (Chantix Continuing Month Box) Have you fallen in the past year?: No PFSH Medical History (Updated 09/12/24 @ 09:[address] Nichelle Hogan MD) Low back pain Autoimmune disease Surgical History (Updated 09/12/24 @ 09:[address] Nichelle Hogan MD) Previous section H/O total hysterectomy Family History (Updated 09/12/24 @ 09:[address] Nichelle Hogan MD) Grandmother Cancer lung Lupus Mother Cancer lung Lupus Sister Lupus Aunt Lupus Other Diabetes Heart disease Hypertension Kidney disease Thyroid disorder Social History (Updated 09/12/24 @ 09:[address] Nichelle Hogan MD) household members: family current occupational status: employed current occupation: maintenance - [employer] Smoking Status: Current every day smoker tobacco type: cigarettes quit status: considering quitting alcohol intake: never substance use type: former substance user Date of last use: 1994 do you feel safe at home: Yes Questionnaire H-9 BMS Over the last 2 weeks, how often have you been bothered by any of the following problems? 1. Little interest or pleasure in doing things: not at all 2. Feeling down, depressed, or hopeless: not at all 3. Trouble falling or staying asleep, or sleeping too much: not at all 4. Feeling tired or having little energy: not at all 5. Poor appetite or overeating: not at all 6. Feeling bad about yourself - or that you are a failure or have let yourself and your family down: not at all 7. Trouble concentrating on things, such as reading the newspaper or watching television: nearly every day 8. Moving or speaking so slowly that other people could have noticed? - Or the opposite - being so fidgety or restless that you have been moving around a lot more than usual: nearly every day 9. Thoughts that you would be better off or of hurting yourself in some way: not at all Total score: 6 If you checked off any problems, how difficult have these problems made it for you to do your work, take care of things at home, or get along with other people?: not difficult at all Source: Developed by Drs. Jim Whitfield, Katty Lopez, Dre Mercer and colleagues, with an educational emery from [employer]. ALBERTO-7 BMS ALBERTO-7 Feeling nervous, anxious, or on edge: 0 = Not at all Not being able to stop or control worryin = Not at all Worrying too much about different things: 0 = Not at all Trouble relaxin = Not at all Being so restless that it is hard to sit still: 0 = Not at all Becoming easily annoyed or irritable: 3 = Nearly every day Feeling afraid as if something awful might happen: 0 = Not at all Total ALBERTO-7 score (0-4 normal; 5-9 mild; 10-14 moderate; 15-21 severe): 3 Source: Developed by Drs. Jim Whitfield, Katty Lopez, Dre Mercer and colleagues, with an educational emery from [employer]. HPI HPI Chief Complaint: STORE HAND ESTABLISH CARE Details: KIZZY UREÑA, is a 48 F who presents to the office today to establish care. She was seeing Dr. Felder and last saw their office a few months ago. She is due for some routine blood work and screening. She does want her second shingles vaccine. She does smoke. She is currently using chantix and would like a refill for it. She reports with it, she has cut back from 1ppd to 1pack per week. She does need refills. She reports she is eating healthy and staying active. She enjoys bike riding. The patient reports she has a strong family history of autoimmune disorders in the family. She reports she was told she also had an autoimmune disease, but has tried and failed multiple medications. She reports she does get symptoms ofraynaud's stating her fingers will turn white with cold weather. She does get aches and pains, but reports they are mostly manageable with ibuprofen. The patient has concerns about her left hip. She reports it has been bothering her about a year ago. She states it has been gradually worsening and reports a constant pain over the last few weeks. She reports she hasn't had any falls or injuries. She reports the pain is in her left lateral hip. She describes it asa pressure sensation and 'like my hip is going to break.' She reports going down stairs and applying the brake/back peddling on her bike seems to make the pain worse. She states she has tried ibuprofen, capsaicin cream and icy-hot, but it hasn't helped at all. She hasn't seen anybody for her pain. She rate her pain 7/10 currently. She denies any associated leg weakness or numbness/tingling. She does have some associated low back pain, but feels that it is stemming from her hip. She denies any right hip involvement. She reportsshe doesn't have time to do any physical therapy. The patient has questions about celexa. She reports when she quit smoking in the past, she had been on celexa for her mental health. She states she states it really seemed to help her get through the agitation related to quitting and the chantix, itself. She reports she tried chantix without the celexa and didn't find it was as effective. She is interested in trying the celexa again to help her quit altogether. She feels the celexa helps her organize things better. She doesn't exactly feel depressed or anxious, but states she does haveagitation. ROS Const Constitutional: No fever(s), frequent falls, headache(s), weakness or weight change Eyes Eyes: No blurry vision, change in vision or visual disturbances ENT ENT: No abnormal hearing, hearing loss, nasal congestion, headache(s) or sore throat Resp Respiratory: Positive for cough; No shortness of breath Cardio Cardiology: No chest pain at rest, chest pain with exertion, shortness of breath, lightheadedness, palpitations or other (no leg swelling) Gastro GI: No abdominal pain, change in bowel habits, constipation, diarrhea, nausea/dyspepsia or vomiting Genitourinary-Female: No difficulty urinating, burning urination or painful urination Musc Musculoskeletal: Positive for joint pain and back pain; No numbness or tingling Skin Skin: No rash Neuro Neurology: No abnormal hearing, dizziness, weakness, frequent falls, headache(s), loss of vision, numbness, tingling, visual disturbances or fainting Psych Psychiatric: No anxiety, No depression, Positive for irritability, No Thoughts of harming yourself/Others and No suicidal ideation Endo Endocrine: No weight change Exam Const General: cooperative, healthy appearing, no acute distress, well developed, not diaphoretic and not ill appearing Nutritional Appearance: well nourished Orientation: alert and oriented x3 Limitations: mental status not altered [facility] Head: normal to inspection, normocephalic and atraumatic Ears: hearing grossly normal bilaterally Face and sinus: normal facial exam Mouth: oral mucosae normal and moist mucous membranes Teeth and gingiva: dentition normal Throat: posterior oropharynx normal Eyes Conjunctivae: conjunctivae normal Sclera: sclerae normal Pupils: PERRL Chest Chest palpation & inspection: normal inspection of the chest Resp Effort & Inspection: normal respiratory effort, able to speak in complete sentences, no audible wheezes and no cough Auscultation: Bilateral: Clear to Auscultation Cardio Rate: regular rate Rhythm: regular rhythm Heart Sounds: S1 normal, S2 normal and no murmurs GI Inspection: non-distended Auscultation: normal bowel sounds Palpation: soft, no hepatosplenomegaly and nontender Musc Musculoskeletal: Yes joint tenderness; No decreased range of motion Thoracic/Lumbar Spine: thoraco-lumbar ROM normal, straight leg raise negative bilaterally, no paraspinal tenderness, no thoracic spinal tenderness and no lumbar spinal tenderness Skin General: no rashes or lesions noted and dry skin Wounds: no wounds Neuro General: patient alert, patient oriented x3 and deep tendon reflexes 2+ bilaterally Cranial Nerves: PERRL Speech: speech normal Motor: strength 5/5 throughout Extrem General: normal to inspection and no edema Other: Tenderness over left lateral hip with leg extension. No tenderness to palpation. Psych Appearance: grossly normal Affect: normal affect Attitude: cooperative Coding Level of Care Code Off vis,new,level 4 Diagnoses Chronic left hip pain M25.552; G89.29 Agitation R45.1 Pulmonary emphysema, unspecified emphysema type J43.9 Emphysema type: unspecified Autoimmune disease M35.9 Screening for cardiovascular condition Z13.6 Encounter for screening mammogram for malignant neoplasm of breast Z12.31 Breast cancer screening modality: mammogram Family history of thyroid disease Z83.49 Colon cancer screening declined Z53.20 Smokes cigarettes F17.210 Immunization due Z23 Establishing care with new doctor, encounter for Z76.89 Additional Codes PHQ-9 (66191) ALBERTO-7 (51543) Time Spent (min) 56 Assessment and Plan Assessment and Plan (1) Chronic left hip pain: Plan: Exam as above. She had an XR of her hip done in 2018 which was normal. She states she doesn't have time for physical therapy. Provided the patient some home exercises to try. A joint injection may be reasonable. She would prefer not to go to orthopedics, if not necessary. Will reach out to FREDDY Noel, nick office to see if this is something he feels comfortable doing. She was in agreement. (2) Agitation: Plan: The patient reports she feels more agitated with being on chantix and requests aprescription for celexa to take while on it. She scored 6 on her PHQ and 3 on her ALBERTO today. Will resume celexa as requested and monitor. Counseled that it can take time to build up and she was in agreement. She denies any thoughts of suicide. (3) Emphysema of lung: Qualifiers: Emphysema type: unspecified Qualified Code(s): J43.9 - Emphysema, unspecified Plan: Stable. No signs of exacerbation. She denies any symptoms and doesn't take anymedications. Will continue to monitor. (4) Autoimmune disease: Status: Acute Plan: Patient reports a history of autoimmune disease. She states she tried and failed multiple medications. Reviewed her previous labs which showed a positiveANA. Her remaining labs, however, were normal. Will continue to monitor at this time. (5) Screening for cardiovascular condition: Plan: Routine labs ordered. (6) Screening for breast cancer: Qualifiers: Breast cancer screening modality: mammogram Qualified Code(s): Z12.31 -Encounter for screening mammogram for malignant neoplasm of breast Plan: Mammogram ordered. (7) Family history of thyroid disease: Plan: Will check TSH (8) Colon cancer screening declined: Plan: Discussed both a colonoscopy and cologuard. The patient doesn't want to do either. Will continue to monitor. (9) Smokes cigarettes: Plan: Cessation encouraged. Counseled the patient for 3-10 minutes. The patient is currently using chantix and feels it has been effective. Will continue to monitor progress. (10) Immunization due: Plan: The patient wanted her second shingrix today in the office, however, prior to administration said she was in a hurry and would get it at another time. Will readdress at her next office visit. (11) Establishing care with new doctor, encounter for: Plan: The patient is here to establish care. Plan as above. Medications reviewed with the patient. Will determine an appropriate follow up after review of test results. The patient was instructed to call with any concerns or questions before then and they were in agreement. I spent a total of 56 minutes on the date of the service which included preparing to see the patient, [id number] patient care, completing clinical documentation, obtaining and/or reviewing separately obtained history. This excludes separately reportable services. Orders: Orders CBC W/Diff, Automated Today M35.9 - Systemic involvement of connective tissue, unspecified Comprehensive Metabolic Profil Today M35.9 - Systemic involvement of connectivetissue, unspecified Lipid Profile Today Z13.6 - Encounter for screening for cardiovascular disorders SCRN MAMM (CAD)W/TARA BILAT Today Z12.39 - Encounter for other screening for malignant neoplasm of breast Thyroid Stim Hormone (TSH) Today Z83.49 - Family history of other endocrine, nutritional and metabolic diseases Smoking Cessation Today F17.210 - Nicotine dependence, cigarettes, uncomplicated Medications: New citalopram (Celexa) 10 mg PO QDAY 30 tabs 1RF varenicline tartrate (Chantix Continuing Month Box) 1 mg PO BID 56 tabs 2RF Discontinued varenicline tartrate Discontinued Reason: Order Changed PO PER PKG DIR Clinical Quality Measures Falls Risk Screening/Assistive Devices Have you fallen in the past year?: No 09/12/24 1245 <Electronically signed by Nichelle olivarez MD> Date _ Nichelle Hogan MD Cosigner Signature: Date (if applicable) CC: ~ [facility] Work Phone: 1(690) 525-185207-11-2025 Note* Addendum Note - Kimmy Fox APRN.CNP - 08/19/2024 9:06 AM EDTAddended by: KIMMY FOX on: 08/19/2024 09:06 AM Modules accepted: Orders [facility]07-11-2025 Miscellaneous Notes* Addendum Note - Kimmy Fox APRN.CNP - 08/19/2024 9:06 AM EDTAddended by: KIMMY FOX on: 08/19/2024 09:06 AM Modules accepted: Orders * Telephone Encounter - Kimmy Fox APRN.CNP - 08/19/2024 9:05 AM EDT Will send large tub triamcinolone to ([facility])pharmacy. Apply 2 x day. Never to face or genitals. Will be due for yearly wellness in September. * Telephone Encounter - Raya Case RN - 08/19/2024 8:20 AM EDT Patient calls to request an order for steroid cream or injection for poison lillie to feet, forearms, and elbows. Attempted to schedule appt and patient declined. Reports just forget it, its poison lillie I don't have time for that I have to work Requests message be sent to provider to request atleast a cream. Raya Case RN documented [facility] Telephone encounter Note * Telephone Encounter - Kimmy Fox APRN.CNP - 08/19/2024 9:05 AM EDT Will send large tub triamcinolone to ([facility])pharmacy. Apply 2 x day. Never to face or genitals. Will be due for yearly wellness in September. [facility]07-11-2025 Telephone encounter Note* Telephone Encounter - Raya Case RN - 08/19/2024 8:20 AM EDT Patient calls to request an order for steroid cream or injection for poison lillie to feet, forearms, and elbows. Attempted to schedule appt and patient declined. Reports just forget it, its poison lillie I don't have time for that I have to work Requests message be sent to provider to request atleast a cream. Raya Case RN [facility]06-15-2025 Evaluation note* Diagnosis Onset Date Resolution Status Admit Date Toe pain, right resolved July 10:35am Autoimmune disease acute September 12, 2024 8:54am Colon cancer screening declined noneactive September 12, 2024 8:54am Chronic left hip pain noneactive Sep 8:54am Immunization due noneactive September 122024 8:54am Smokes cigarettes noneactive September 12, 2024 8:54am Screening for cardiovascular condition noneactive September 12, 2024 8:54am Establishing care with new doctor, encounter for noneactive September 8:54am Emphysema of lung noneactive September 12, 2024 8:54am Agitation noneactive September 12 8:54am Family history of thyroid disease noneactive September 12, 2024 8:54am Screening for breast cancer noneacti ve September 12, 2024 8:54am [facility] Work Phone: 1(540) 231-834006-15-2025 Progress [facility] [address] [place] [address] OFFICE VISIT Date of Service: 07/24/24 MR#: [id number] Acct: [id number] Name: KIZZY UREÑA Rep #: [id number] : 1975 Provider: COURTNEY Nails Roof Age/Sex: 48/F Location: [facility] Status: Signed Intake Vital Signs 02/05/23 09:50 07/24/24 10:31 Height 4 ft 10 in 4 ft 10 in BP 118/76 Blood Pressure Location Lt brachial Position Sitting Respiration 17 Pulse 70 Pulse Source NIBP Temp 98.1 F Temp Source Oral Pulse Oximetry (%) 96 Oxygen Delivery Method room air Intake Visit Reasons: INGROWN TOE NAIL R BIG TOE/ MOLE ON BACK Chief Complaint: right great toe infection Platform Man Required: No Is patient in pain?: Yes Allergies No Known Allergies Allergy (Verified 07/24/24 10:43) Medications ?Medication ?Instructions ?Recorded ?Confirmed ?Type amoxicillin 875 mg-potassium 1 tab PO BID 7 days #14 t abs 07/24/24 07/24/24 Rx clavulanate 125 mg tablet lidocaine 5 % topical ointment 1 applic topical QDAY P RN pain #30 07/24/24 07/24/24 Rx grams Is last menstrual period known: No Post menopausal: Yes Patient : No Have you fallen in the past year?: No Nurse's Note: right great toe infection x 1 week, much worse last night after pt dug at it. hx of same. also c/o right upper back skin tag PFSH Surgical History H/O total hysterectomy Family History Other Cancer Diabetes Hypertension Kidney disease Social History Smoking Status: Current every day smoker tobacco type: cigarettes alcohol intake: never HPI HPI Chief Complaint: right great toe infection Details: KIZZY UREÑA, is a 48 F who presents to the office today for concerns regarding right great toe infection for this and ongoing for 1 week. She feels this to have worsened after she dug at it. She also stressed concerns regarding a right upper back skin tag. ROS Const Constitutional: No body ache, chills, fatigue, fever(s) or headache(s) ENT ENT: No headache(s) Skin Skin: Positive for redness Neuro Neurology: No headache(s) Endo Endocrine: No fatigue Exam Const General: cooperative, healthy appearing, comfortable and no acute distress Orientation: alert and awake Skin General: other Other: right great toe redness, clear drainage, and tender to touch. Pulses 2+. Warm extremity to touch. Coding Level of Care Code Off vis,est,level 3 Diagnoses Toe pain, right M79.674 Assessment and Plan Assessment and Plan (1) Toe pain, right: Status: Acute Plan: Will add oral antibiotic along with topical antibiotic. She expresses concerns regarding pain control. Will send prescription for lidocaine to help. She was encouraged to utilize hydrocortisone creamalong with Tylenol and ibuprofren. She was encouraged to follow with mineral economist for toe related issues along with potential flat foot or overpronation related issues that may affect her knee or hip. Encouraged to get plenty of rest, drink lots of clear liquids, and use Tylenol or Ibuprofen (unless contraindicated) for fever and comfort. Patient also educated on other symptomatic management techniques. To be seen in 7-10 days if no improvement; sooner if worsening of symptoms.? Patient advised of potential red flags and when appropriate to report to the ED.? Patient verbalized understanding and agreement with all the above. Medications: New amoxicillin-pot clavulanate 875-125 mg 1 TAB PO BID 7 days 14 tabs 0RF lidocaine 5% 1 applic topical QDAY PRN 30 grams 0RF pain Clinical Quality Measures Falls Risk Screening/Assistive Devices Have you fallen in the past year?: No 07/24/24 1109 P STORE HAND-C> Date _ Enrrique Billings STORE HAND STORE HAND-C Cosigner Signature: Date (if applicable) CC: Dr. Nichelle Hogan MD; Dr. Abel Hill, DO ~ [facility]06-15-2025 Progress note Author Enrrique Billings [facility] Note Date/Time July 24, 2024 11:0 9am [facility] [address] [place] [address] OFFICE VISIT Date of Service: 07/24/24 MR#: [id number] Acct: [id number] Name: KIZZY UREÑA Rep #: [id number] : 1975 Provider: COURTNEY Billings Age/Sex: 48/F Location: [facility] Status: Signed Intake Vital Signs 02/05/23 09:50 07/24/24 10:31 Height 4 ft 10 in 4 ft 10 in BP 118/76 Blood Pressure Location Lt brachial Position Sitting Respiration 17 Pulse 70 Pulse Source NIBP Temp 98.1 F Temp Source Oral Pulse Oximetry (%) 96 Oxygen Delivery Method room air Intake Visit Reasons: INGROWN TOE NAIL R BIG TOE/ MOLE ON BACK Chief Complaint: right great toe infection Platform Man Required: No Is patient in pain?: Yes Allergies No Known Allergies Allergy (Verified 07/24/24 10:43) Medications ?Medication ?Instructions ?Recorded ?Confirmed ?Type amoxicillin 875 mg-potassium 1 tab PO BID 7 days #14 t abs 07/24/24 07/24/24 Rx clavulanate 125 mg tablet lidocaine 5 % topical ointment 1 applic topical QDAY P RN pain #30 07/24/24 07/24/24 Rx grams Is last menstrual period known: No Post menopausal: Yes Patient : No Have you fallen in the past year?: No Nurse's Note: right great toe infection x 1 week, much worse last night after pt dug at it. hx of same. also c/o right upper back skin tag PFSH Surgical History H/O total hysterectomy Family History Other Cancer Diabetes Hypertension Kidney disease Social History Smoking Status: Current every day smoker tobacco type: cigarettes alcohol intake: never HPI HPI Chief Complaint: right great toe infection Details: KIZZY UREÑA, is a 48 F who presents to the office today for concerns regarding right great toe infection for this and ongoing for 1 week. She feels this to have worsened after she dug at it. She also stressed concerns regarding a right upper back skin tag. ROS Const Constitutional: No body ache, chills, fatigue, fever(s) or headache(s) ENT ENT: No headache(s) Skin Skin: Positive for redness Neuro Neurology: No headache(s) Endo Endocrine: No fatigue Exam Const General: cooperative, healthy appearing, comfortable and no acute distress Orientation: alert and awake Skin General: other Other: right great toe redness, clear drainage, and tender to touch. Pulses 2+. Warm extremity to touch. Coding Level of Care Code Off vis,est,level 3 Diagnoses Toe pain, right M79.674 Assessment and Plan Assessment and Plan (1) Toe pain, right: Status: Acute Plan: Will add oral antibiotic along with topical antibiotic. She expresses concerns regarding pain control. Will send prescription for lidocaine to help. She was encouraged to utilize hydrocortisone cream along with Tylenol and ibuprofren. She was encouraged to follow with mineral economist for toe related issues along with potential flat foot or overpronation related issues that may affect her knee or hip. Encouraged to get plenty of rest, drink lots of clear liquids, and use Tylenol or Ibuprofen (unless contraindicated) for fever and comfort. Patient also educated on other symptomatic management techniques. To be seen in 7-10 days if no improvement; sooner if worsening of symptoms.? Patient advised of potential red flags and when appropriate to report to the ED.? Patient verbalized understanding and agreement with all the above. Medications: New amoxicillin-pot clavulanate 875-125 mg 1 TAB PO BID 7 days 14 tabs 0RF lidocaine 5% 1 applic topical QDAY PRN 30 grams 0RF pain Clinical Quality Measures Falls Risk Screening/Assistive Devices Have you fallen in the past year?: No 07/24/24 1109 <Electronically signed by Enrrique SALASC> Date _ Enrrique Billings NP STORE HAND-C Cosigner Signature: Date (if applicable) CC: Dr. Nichelle Hogan MD; Dr. Abel Hill DO ~ [facility] Work Phone: 1(568) 170-485301-21-2025 NotePatient Outreach (FAMPWS) KIZZY UREÑA ([id number]) 1975 F Date Time Provider Department 03/01/24 [facility] During your visit today, we recorded the following information about you: Allergies As of Date: 03/01/2024 (No Known Allergies) Date Reviewed: 09/25/2023 Reviewed by: Chastity Maya PA-C - Fully Assessed Visit Diagnosis:Encounter for screening mammogram for breast cancer [Z12.31] Order(s):DO SCREENING W TARA [[id number]] Order #: [id number] FUTURE Prescriptions as of 04/01/2024 - varenicline (CHANTIX STARTING MONTH BOX) 0.5 mg (11)- 1 mg (42) tablet Take 0.5 mg by mouth once daily on Days 1 through 3, THEN 0.5 mg twice daily on Days 4 through 7, THEN 1 mg twice daily on Day 8 and thereafter - varenicline (CHANTIX) 1 mg tablet Take 1 tablet by mouth two times a day with meals. - estradiol (ESTRACE) 0.01 % (0.1 mg/gram) vaginal cream Apply pea-sized amount to perineum and 1 applicator vaginally Mon, Wed, Thu for atrophic vaginitis. Problem List As Of Date 03/01/2024 Noted Resolved PERS HX OF ALCOHOLISM [F10.21] [...] Anxiety with depression [F41.8] Encounter Status:Closed by PHILOMENA PRODUSER on 04/01/24[facility] 11-08-2023 NoteHNO ID: [id number] Author: HIMA ONEILL PA-C Service: ? Author Type: Physician Monitoring Engineer Type: Progress Notes Filed: 11/08/2023 18:14 Note Text: [facility] Pulmonary Medicine ESTABLISHED EILEEN w/me - 0 Other pulm - LCS - 09/2023 Referred by - Ms Maya Note: current info and updates are in green PROBLEM LIST Reviewed and updated today: Lung nodules Cervical cancer ALBERTO - PTSD Recovering ETOH 2005 Illicit drug use - last 1991 Active smoker ASSESSMENT AND PLAN Pulm Visit to establish [facility] [place] and DL today SOB-TADEO LCS w Ms Maya 09/24 - first LDCT for 09/2024 CCT 09/22: IMPRESSION: Emphysema, with mild, diffuse bronchiectasis. Groundglass attenuation and air-trapping within both lungs, suggesting superimposed reactive airways disease. There are tiny pulmonary nodules measuring up to 2-3 mm in size. No steph lymphadenopathy is seen within the chest. Peripherally calcified nodule is seen within the right lobe of thyroid gland, measuring approximately 1.1 cm, previously evaluated thyroid ultrasound dated 01/10/2021. Smoking cessation POC: Special orders: CC chart to: CHIEF COMPLAINT and HPI 48 yo WF from [place] Smoking hx - active 26 pk yrs Prior substance abuse Activity level - active BMI - 27.3 See A/P for remainder of HPI. Pulm regimen: Albuterol - using rescue inhaler Neb - Pred - ABX - Home oxygen - CPAP - Vaccines - reviewed Rehab - 0 ED - 0 Admission - 0 BiPAP or vent support - 0 REVIEW OF SYSTEMS As noted in HPI and otherwise negative today. CURRENT MEDICATIONS AND ALLERGIES Reviewed and updated today. PAST MEDICAL/SURGICAL/SOCIAL HISTORY Reviewed and updated today. PHYSICAL EXAM VS today: color wnl/no clubbing neg HEENT no nodes/thyromegaly A=P/RRR/no murmur or bruits no wheeze, rhonchi, crackles No hepatosplenomegaly or paradox no LE edema sensation/strength intact DTR's 2+ gait wnl DIAGNOSTIC REVIEW I personally reviewed and interpreted the labs, PFTs and radiographs. PFS - OxEX - CXR - 12/2020: Questionable hazy opacities overlying the right lower lung. Consider short-term follow-up. CCT 09/22: IMPRESSION: Emphysema, with mild, diffuse bronchiectasis. Groundglass attenuation and air-trapping within both lungs, suggesting superimposed reactive airways disease. There are tiny pulmonary nodules measuring up to 2-3 mm in size. No steph lymphadenopathy is seen within the chest. Peripherally calcified nodule is seen within the right lobe of thyroid gland, measuring approximately 1.1 cm, previously evaluated thyroid ultrasound dated 01/10/2021. ECG - 10/2020 - NSR 62 ECHO - 2010 - NAD Labs - FVC FEV1 FEV1/FVC FEF 25-75 TLC RV RV/TLC DLCO DL/VA FV loop BD response ? FeNO MMRC Dyspnea Scale: Not troubled by breathlessness except on strenuous exercise Short of breath when hurrying or walking up a slight hill Walks slower than contemporaries on the level because of breathlessness, or has to stop for breath when walking at own pace Stops for breath after about 100 m or after a few minutes on the level Too breathless to leave the house, or breathless when dressing or undressing To optimize provider communication via the electronic health record, the Assessment AND Plan section has been placed at the beginning of this note. Patient voices clear understanding and agrees with our plan All questions answered and Patient Instructions reviewed. AVS presented to the patient. Final recommendations will be communicated to the requesting health care provider by way of the shared medical record for internal providers or letter via the [employer] Postal Service for external providers. Review of the old notes if available was done and parts have been incorporated Into the a/p below for continuity of care. Total Visit time was 60 minutes. Hima Nathan-Torres PA-C, RN [facility] O: [phone]09-29-2024 History of Present illness Narrative* Hima Oneill PA-C - 11/08/2023 5:58 PM EDT Images from the original note were not included. [facility] Pulmonary Medicine ESTABLISHED EILEEN w/me - 0 Other pulm - LCS - 09/2023 Referred by - Ms Maya Note: current info and updates are in green PROBLEM LIST Reviewed and updated today: Lung nodules Cervical cancer ALBERTO - PTSD Recovering ETOH 2006 Illicit drug use - last 1991 Active smoker ASSESSMENT AND PLAN Pulm Visit to establish [facility] and DL today SOB-TADEO LCS w Ms Maya 09/24 - first LDCT for 09/2024 CCT 09/22: IMPRESSION: Emphysema, with mild, diffuse bronchiectasis. Groundglass attenuation and air-trapping within both lungs, suggesting superimposed reactive airways disease. There are tiny pulmonary nodules measuring up to 2-3 mm in size. No steph lymphadenopathy is seen within the chest. Peripherally calcified nodule is seen within the right lobe of thyroid gland, measuring approximately 1.1 cm, previously evaluated thyroid ultrasound dated 01/10/2021. Smoking cessation POC: Special orders: CC chart to: CHIEF COMPLAINT and HPI 48 yo WF from [place] Smoking hx - active 26 pk yrs Prior substance abuse Activity level - active BMI - 27.3 See A/P for remainder of HPI. Pulm regimen: Albuterol - using rescue inhaler Neb - Pred - ABX - Home oxygen - CPAP - Vaccines - reviewed Rehab - 0 ED - 0 Admission - 0 BiPAP or vent support - 0 REVIEW OF SYSTEMS As noted in HPI and otherwise negative today. CURRENT MEDICATIONS AND ALLERGIES Reviewed and updated today. PAST MEDICAL/SURGICAL/SOCIAL HISTORY Reviewed and updated today. PHYSICAL EXAM VS today: color wnl/no clubbing neg HEENT no nodes/thyromegaly A=P/RRR/no murmur or bruits no wheeze, rhonchi, crackles No hepatosplenomegaly or paradox no LE edema sensation/strength intact DTR's 2+ gait wnl DIAGNOSTIC REVIEW I personally reviewed and interpreted the labs, PFTs and radiographs. PFS - OxEX - CXR - 12/2020: Questionable hazy opacities overlying the right lower lung. Consider short-term follow-up. CCT 09/22: IMPRESSION: Emphysema, with mild, diffuse bronchiectasis. Groundglass attenuation and air-trapping within both lungs, suggesting superimposed reactive airways disease. There are tiny pulmonary nodules measuring up to 2-3 mm in size. No steph lymphadenopathy is seen within the chest. Peripherally calcified nodule is seen within the right lobe of thyroid gland, measuring approximately 1.1 cm, previously evaluated thyroid ultrasound dated 01/10/2021. ECG - 10/2020 - NSR 62 ECHO - 2011 - NAD Labs - FVC FEV1 FEV1/FVC FEF 25-75 TLC RV RV/TLC DLCO DL/VA FV loop BD response ? FeNO MMRC Dyspnea Scale: Not troubled by breathlessness except on strenuous exercise Short of breath when hurrying or walking up a slight hill Walks slower than contemporaries on the level because of breathlessness, or has to stop for breath when walking at own pace Stops for breath after about 100 m or after a few minutes on the level Too breathless to leave the house, or breathless when dressing or undressing To optimize provider communication via the electronic health record, the Assessment & Plan section has been placed at the beginning of this note. Patient voices clear understanding and agrees with our plan All questions answered and Patient Instructions reviewed. AVS presented to the patient. Final recommendations will be communicated to the requesting health care provider by way of the shared medical record for internal providers or letter via the [employer] Postal Service for external providers. Review of the old notes if available was done and parts have been incorporated Into the a/p below for continuity of care. Total Visit time was 60 minutes. Hima Oneill PA-C, RN [facility]: [phone] documented in this encounterUniversity Hospitals Ely[facility] Center08-16-2024 Instructions* Patient Instructions* Chastity Maya PA-C - 09/25/2023 9:09 AM EDT You were seen today for a lung cancer screening appointment. We have recommended a low dose CT scanof your chest as a screening tool to look for signs of cancer. Below are listed some of the risks and benefits of lung cancer screening. We will see you back after your low dose CT scan to review theimages and discuss the results. Lung Cancer Screening: Benefits - Lung screening is able to detect lung cancer at an early stage. Fewer people like you will from lung cancer among those who were screened compared to those who were not screened. Risks -Few people (13 in 1000) may have an invasive procedure, such as biopsy or surgery, due to a lung nodule that looked like cancer, but was Not cancer. -Very few (1 in 1000) had a major complication from invasive procedures. -Some people experience anxiety when they learn they have a lung nodule or when it is time to have their yearly screen. -CT lung screening can lead to more tests, scans or more appointments which can be time-consuming and/or inconvenient. If you would like to watch the educational Lung Cancer Screening video again: [email or web address]? We work on a team. You might receive a message or hear from one of our other providers: Marilu Blum PA-C; Hima Felton CNP; Raisa Ramirez CNP, Dary Chahal CNP; Saima Jordan CNP; Estrellita Chavira PA-C; Caty Mehta CNP; Paulina Urrutia CNP; Debbie Salinas CNP; Gosia Galeas CNP; Chastity Maya PA-C; Deya Harper PA-C; Osiris Alvarado CNP; Lilibeth Domínguez CNP; Erin Henao CNP Specialist Provider line : [phone] Lung Cancer Screening scheduling lines: [place] [facility] [phone] [facility] [phone] All other [facility] locations [phone] documented in this encounterUniversity Hospitals Elyria [facility] Center08-16-2024 History of Present illness Narrative* Chastity Maya PA-C - 09/25/2023 8:47 AM EDT Images from the original note were not included. LUNG SCREENING VISIT PRIMARY CARE PHYSICIAN: Corby Felder MD PULMONARY PROVIDER: N/A Results will be communicated via letter or electronic record if applicable. Visit Delivery: In Person Patient Visit Type: New to Screening Current or Ex-smoker? [Current Exam Type: baseline LDCT Number of Pack Years: 26 Current smoker (=0) Results will be communicated via letter or electronic record. REQUESTER: The referring provider advised the patient to have screening. HISTORY OF PRESENT ILLNESS: Kizzy Ureña is a 48 year old active smoker who presents for lung screening. Respiratory symptoms include: SOB: Yes - with stairs Chest tightness: No Coughing: No Hemoptysis: No Wheezing: Yes - at night Fever/Chills: Yes - night sweats x 2 yrs Recent Respiratory Infection: No Unintentional weight loss: No Last 6 Encounter Wt Readings: Date: Wt: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 Family Medicine 06/25/15 Team Status: Active Member Role Status Dates No Primary Care Physician Family Provider Active Dr. Corby Felder MD Primary Care Provider Active Team Status: Inactive Member Role Status Dates Dr. Corby Felder MD Primary Care Provider Active Dr. Jorge Siu MD Emergency Provider Active Book Solicitor Relationship Specialty Start Date End Date Corby Felder MD [address] [place], [place] [id number] PCP - General Family Medicine 06/25/15 Book Solicitor Relationship Specialty Start Date End Date Corby Felder MD [address] [place], [place] [address] PCP - General Family Medicine 06/25/15 Book Solicitor Relationship Specialty Start Date End Date Corby Felder MD [address] [place] [address] PCP - General Family Medicine 06/25/15 Book Solicitor Relationship Specialty Start Date End Date Corby Felder MD [address] [place] [address] PCP - General Family Medicine 06/25/15 Book Solicitor Relationship Specialty Start Date End Date Corby Felder MD [address] [place] [address] PCP - General Family Medicine 06/25/15 Book Solicitor Relationship Specialty Start Date End Date Corby Felder MD [address] [place] [address] PCP - General Family Medicine 06/25/15 Book Solicitor Relationship Specialty Start Date End Date Corby Felder MD [address] [place] [address] PCP - General Family Medicine 06/25/15 Book Solicitor Relationship Specialty Start Date End Date Corby Felder MD [address] [place], [place] [id number] PCP - General Family Medicine 06/25/15 Book Solicitor Relationship Specialty Start Date End Date Corby Felder MD [address] [place] [address] PCP - General Family Medicine 06/25/15 Book Solicitor Relationship Specialty Start Date End Date Corby Felder MD [address] [facility], [place] [address] PCP - General Family Medicine 06/25/15 Pushpa Wasserman APRN.NET FRONT END DEVELOPER [address] [facility] [place] [address] Freight Unloader Family [facility] 01/18/24 Kimmy Fox APRN.NET FRONT END DEVELOPER [address] [facility] [place] [address] Freight Unloader [facility] 01/18/24 Team Status: Inactive Member Role Status Dates Dr. Corby Felder MD Primary Care Provider Active Start: July 24, 2024 End: July 24, 2024 Dr. Corby Felder MD Referring Provider Active Start: July 24, 2024 End: July 24, 2024 Enrrique Billings STORE HAND, STORE HAND-C Attending Provider Active S tart: July 24, 2024 End: July 24, 2024 Book Solicitor Relationship Specialty Start Date End Date Corby Felder MD [address] [facility] [address] PCP - General Family Medicine 06/25/15 Pushpa Wasserman APRN.NET FRONT END DEVELOPER [address] [facility] [place] [address] Freight Unloader Family Medicine 01/18/24 Kimmy Fox APRN.NET FRONT END DEVELOPER [address] [facility] [address] Freight Unloader Family [facility] 01/18/24 Team Status: Active Member Role/Relationship Status Dates No Primary Care Physician Family Provider Active Dr. Corby Felder MD Primary Care Provider Active Team Status: Inactive Member Role/Relationship Status Dates Dr. Corby Felder MD Primary Care Provider Active Start: July 24, 2024 End: July 24, 2024 Dr. Corby Felder MD Referring Provider Active Start: July 24, 2024 End: July 24, 2024 Enrriuqe Billings STORE HAND, STORE HAND-C Attending Provider Active S tart: July 24, 2024 End: July 24, 2024 Team Status: Inactive Member Role/Relationship Status Dates Dr. Corby Felder MD Primary Care Provider Active Start: September 12, 2024 End: September 12, 2024 Dr. Corby Felder MD Referring Provider Active Start: September 12, 2024 End: September 12, 2024 Dr. Nichelle Hogan MD Attending Provider Active Start: September 12, 2024 End: September 12, 2024 Book Solicitor Relationship Specialty Start Date End Date Corby Felder MD [address] [facility] [address] PCP - General Family Medicine 06/25/15 Pushpa Wasserman, METHODS AND PROCEDURES ANALYST.NET FRONT END DEVELOPER [address] [facility] [address] Freight Unloader Family Medicine 01/18/24 Kimmy Fox APRN.NET FRONT END DEVELOPER [address] [facility] [facility] [place] [address] Freight Unloader Family Medicine 01/18/24 Book Solicitor Relationship Specialty Start Date End Date Corby Felder MD [address] [place] [address] PCP - General Family Medicine 06/25/15 Pushpa Wasserman APRN.NET FRONT END DEVELOPER [address] [facility] [address] Freight Unloader Family Medicine 01/18/24 Kimmy Fox APRN.NET FRONT END DEVELOPER [address] [place] [address] [facility] 01/18/24 Book Solicitor Relationship Specialty Start Date End Date Corby Felder MD [address] [place], [place] [address] PCP - General Family Medicine 06/25/15 Pushpa Wasserman APRN.NET FRONT END DEVELOPER [address] [place] [address] [facility] 01/18/24 Kimmy Fox APRN.NET FRONT END DEVELOPER [address] [place] [address] [facility] 01/18/24 Book Solicitor Relationship Specialty Start Date End Date Corby Felder MD [address] [place] [address] PCP - General Family Medicine 06/25/15 Pushpa Wasserman APRN.NET FRONT END DEVELOPER [address] [place] [address] [facility] 01/18/24 Kimmy Fox APRN.NET FRONT END DEVELOPER [address] [place] [address] [facility] 01/18/24 Goals (unrecognized section and content) Goals may be documented in a n alternate section FOR RECORDS PERTAINING TO PATIENTS WHO ARE [...] BE BASED ON THE PRIMARY CLINICAL RECORDS. [facility] [employer] [facility]. provides no warranty or guarantee of the accuracy or completeness of information in this document.
[2024-10-17] MEDS: Albuterol 2.5 MG/3 ML VIAL.NEB. INHALATION (23:38)
[2024-10-17 23:40] VITALS: PULSE 80; RESP 14
[2024-10-17] MEDS: Lidocaine 1% (5 ml sdv) 5 ML Vial INHALATION (23:48)
[2024-10-17 23:53] VITALS: PULSE 71; RESP 16
[2024-10-18] VITALS: BP 144/79; O2SAT 96
[2024-10-18 00:08] VITALS: O2SAT 97
--- NOTE | 2024-10-18 00:40 | RAD_ITS ---
PROCEDURE: CHEST 1 VIEW (PORTABLE) 10/18/2024 REASON FOR EXAM: SOB AFTER INHALING CHEMICAL TECHNIQUE: Frontal view of the chest. COMPARISON: 02/05/2023. FINDINGS: The lungs are clear. The cardiomediastinal silhouette appears unremarkable. No acute osseous abnormality. RAD/Chest 1 View (Portable) IMPRESSION: As above. Reading Location: [id number]
[2024-10-18 00:56] VITALS: BP 152/79; PULSE 80; RESP 18; TEMP 36.6; O2SAT 97
== END 2024-10-18 00:59 | disposition home or self-care (01) ==
PROVIDERS: Emergency Provider Emergency Medicine; PCP Internal Medicine; Visit Provider Emergency Medicine
DX: T54.91XA Toxic effect of unspecified corrosive substance, accidental (unintentional), initial encounter (principal); J68.0 Bronchitis and pneumonitis due to chemicals, gases, fumes and vapors; F17.210 Nicotine dependence, cigarettes, uncomplicated
CPT/HCPCS: 71045; 94640; 99282